=== PATIENT | male | born 1955 | race Caucasian/White ===

== ENCOUNTER 2020-07-28 09:28 | Outpatient (REF) | payer MEDICARE, SELFPAY ==
[2020-07-28 22:02] LABS: ALT 22 U/L (16-63); AST 15 U/L (15-37); Albumin 4.1 g/dL (3.4-5.0); Alkaline Phosphatase 96 U/L (46-116); Anion Gap 9.4 mmol/L (3-11); BUN 25 mg/dL (7-18); Bilirubin, Total 0.9 mg/dL (0.2-1.0); CO2 28.6 mmol/L (21.0-32.0); CREATININE 1.46 mg/dL (0.70-1.30); Calcium 9.6 mg/dL (8.5-10.1); Calculated LDL 111 mg/dL (<100); Chloride 103 mmol/L (98-107); Cholesterol 192 mg/dL (<200); Estimated GFR 48.31 (mL/min/1.73m2); Glucose 141 mg/dL (74-106); HDL Cholesterol 48 mg/dL (40-60); Sodium 141 mmol/L (136-145); Total Protein 7.6 g/dL (6.4-8.2); Triglyceride 168 mg/dL (<150)
[2020-07-28 22:28] LABS: COMMENT (LAB VIEW ONLY) 74.82 mg/dL
[2020-07-28 22:33] LABS: Microalb ug/mg Crea 223.7 ug/mg Cr
== END 2020-07-28 09:48 ==
LOC: NCHCN 09:28
PROVIDERS: PCP Nurse Practitioner Family; Visit Provider Nurse Practitioner Family
DX: I10 Essential (primary) hypertension (principal); E11.9 Type 2 diabetes mellitus without complications; E78.5 Hyperlipidemia, unspecified
CPT/HCPCS: 80053; 80061; 82043; 82570

== ENCOUNTER 2022-10-17 15:09 | Outpatient (REF) | payer MEDICARE, SELFPAY ==
[2022-10-17 16:13] LABS: Abs Immature Grans 0.03 10^3/uL (0.0-0.06); Absolute Basophil Count 0.05 10^3/uL (0.0-0.2); Absolute Eosinophil Count 0.13 10^3/uL (0.0-0.7); Absolute Lymphocyte Count 1.38 10^3/uL (1.2-3.4); Absolute Monocyte Count 0.62 10^3/uL (0.1-0.8); Absolute Neutrophil Count 5.17 10^3/uL (1.2-6.7); Basophils % 0.7; Eosinophils % 1.8; HCT 39.2 % (40.0-50.0); HGB 12.6 g/dL (13.5-17.5); Immature Grans % 0.4; Lymphocytes % 18.7; MCH 28.6 pg (27.0-33.0); MCHC 32.1 % (32.0-36.0); MCV 89 fL (80-95); MPV 9.8 fL (8.0-11.0); Monocytes % 8.4; Platelet Count 392 10^3/uL (130-400); RBC 4.41 10^6/uL (4.36-5.78); RDW 13.4 % (11.8-14.1); RDW-SD 44.2 fL; WBC 7.38 10^3/uL (4.4-10.8)
[2022-10-17 16:30] LABS: BUN 24 mg/dL (7-18); C-Reactive Protein 1.38 mg/dL (0.0-0.3); CREATININE 1.6 mg/dL (0.70-1.30); Calcium 8.9 mg/dL (8.5-10.1); Chloride 97 mmol/L (98-107); Estimated GFR 46.64 (mL/min/1.73m2); Glucose 460 mg/dL (74-106); Potassium 4.3 mmol/L (3.5-5.1); Sodium 132 mmol/L (136-145)
== END 2022-10-17 15:10 | disposition home or self-care (01) ==
LOC: LBN 15:09
PROVIDERS: PCP Nurse Practitioner Family; Visit Provider Podiatrist
DX: M86.171 Other acute osteomyelitis, right ankle and foot (principal); E11.65 Type 2 diabetes mellitus with hyperglycemia
CPT/HCPCS: 80048; 85025; 86140

== ENCOUNTER 2023-01-16 20:34 | Outpatient (REF) | payer MEDICARE, SELFPAY ==
[2023-01-16 21:33] LABS: Abs Immature Grans 0.04 10^3/uL (0.0-0.06); Absolute Basophil Count 0.06 10^3/uL (0.0-0.2); Absolute Eosinophil Count 0.18 10^3/uL (0.0-0.7); Absolute Lymphocyte Count 1.47 10^3/uL (1.2-3.4); Absolute Monocyte Count 0.73 10^3/uL (0.1-0.8); Absolute Neutrophil Count 7.64 10^3/uL (1.2-6.7); Basophils % 0.6; Eosinophils % 1.8; HCT 31.1 % (40.0-50.0); HGB 9.9 g/dL (13.5-17.5); Immature Grans % 0.4; Lymphocytes % 14.5; MCH 28.8 pg (27.0-33.0); MCHC 31.8 % (32.0-36.0); MCV 90 fL (80-95); MPV 9.2 fL (8.0-11.0); Monocytes % 7.2; Neutrophils % 75.5; Platelet Count 369 10^3/uL (130-400); RBC 3.44 10^6/uL (4.36-5.78); RDW 16.9 % (11.8-14.1); RDW-SD 51.1 fL; WBC 10.12 10^3/uL (4.4-10.8)
[2023-01-16 21:47] LABS: ALT 21 U/L (16-63); AST 21 U/L (15-37); Albumin 2.4 g/dL (3.4-5.0); Alkaline Phosphatase 320 U/L (46-116); Anion Gap 7.2 mmol/L (3-11); BUN 11 mg/dL (7-18); Bilirubin, Total 0.3 mg/dL (0.2-1.0); C-Reactive Protein 2.52 mg/dL (0.0-0.3); CO2 28.8 mmol/L (21.0-32.0); Calcium 8.7 mg/dL (8.5-10.1); Chloride 104 mmol/L (98-107); Estimated GFR 81.47 (mL/min/1.73m2); Glucose 109 mg/dL (74-106); Potassium 4.1 mmol/L (3.5-5.1); Sodium 140 mmol/L (136-145); Total Protein 5.7 g/dL (6.4-8.2)
== END 2023-01-16 20:35 | disposition home or self-care (01) ==
LOC: LBN 20:34
PROVIDERS: PCP Nurse Practitioner Family; Visit Provider Nurse Practitioner
DX: M86.171 Other acute osteomyelitis, right ankle and foot (principal); L03.115 Cellulitis of right lower limb; Z79.2 Long term (current) use of antibiotics; E11.9 Type 2 diabetes mellitus without complications
CPT/HCPCS: 80053; 85025; 86140

== ENCOUNTER 2023-01-23 22:17 | Outpatient (REF) | payer MEDICARE, SELFPAY ==
[2023-01-23 21:18] LABS: Abs Immature Grans 0.02 10^3/uL (0.0-0.06); Absolute Basophil Count 0.07 10^3/uL (0.0-0.2); Absolute Eosinophil Count 0.17 10^3/uL (0.0-0.7); Absolute Monocyte Count 0.78 10^3/uL (0.1-0.8); Basophils % 0.6; Eosinophils % 1.6; HCT 33.6 % (40.0-50.0); HGB 11.2 g/dL (13.5-17.5); Immature Grans % 0.2; Lymphocytes % 8.2; MCH 29.3 pg (27.0-33.0); MCHC 33.3 % (32.0-36.0); MCV 88 fL (80-95); MPV 9.4 fL (8.0-11.0); Monocytes % 7.1; Neutrophils % 82.3; Platelet Count 473 10^3/uL (130-400); RBC 3.82 10^6/uL (4.36-5.78); RDW 16.9 % (11.8-14.1); RDW-SD 54.7 fL; WBC 10.93 10^3/uL (4.4-10.8)
[2023-01-23 21:34] LABS: ALT 17 U/L (16-63); AST 23 U/L (15-37); Albumin 2.4 g/dL (3.4-5.0); Alkaline Phosphatase 224 U/L (46-116); Anion Gap 6.8 mmol/L (3-11); BUN 18 mg/dL (7-18); Bilirubin, Total 0.4 mg/dL (0.2-1.0); C-Reactive Protein 4.06 mg/dL (0.0-0.3); CO2 30.2 mmol/L (21.0-32.0); CREATININE 1.1 mg/dL (0.70-1.30); Calcium 8.5 mg/dL (8.5-10.1); Chloride 102 mmol/L (98-107); Estimated GFR 72.67 (mL/min/1.73m2); Glucose 95 mg/dL (74-106); Potassium 3.5 mmol/L (3.5-5.1); Sodium 139 mmol/L (136-145); Total Protein 5.9 g/dL (6.4-8.2)
== END 2023-01-23 22:18 | disposition home or self-care (01) ==
LOC: LBN 22:17
PROVIDERS: PCP Nurse Practitioner Family; Visit Provider Student in an Organized Health Care Education/Training Program
DX: B95.7 Other staphylococcus as the cause of diseases classified elsewhere (principal); A49.8 Other bacterial infections of unspecified site; M86.9 Osteomyelitis, unspecified
CPT/HCPCS: 80053; 85025; 86140

== ENCOUNTER 2023-01-30 14:42 | Outpatient (REF) | payer MEDICARE, SELFPAY ==
[2023-01-30 14:52] LABS: Abs Immature Grans 0.19 10^3/uL (0.0-0.06); Absolute Basophil Count 0.05 10^3/uL (0.0-0.2); Absolute Eosinophil Count 0.68 10^3/uL (0.0-0.7); Absolute Lymphocyte Count 0.56 10^3/uL (1.2-3.4); Absolute Monocyte Count 0.83 10^3/uL (0.1-0.8); Absolute Neutrophil Count 11.06 10^3/uL (1.2-6.7); Basophils % 0.4; Eosinophils % 5.1; HGB 11.2 g/dL (13.5-17.5); Immature Grans % 1.4; Lymphocytes % 4.2; MCH 28.3 pg (27.0-33.0); MCHC 32.9 % (32.0-36.0); MCV 86 fL (80-95); MPV 9.2 fL (8.0-11.0); Monocytes % 6.2; Neutrophils % 82.7; Platelet Count 570 10^3/uL (130-400); RBC 3.96 10^6/uL (4.36-5.78); RDW 15.6 % (11.8-14.1); RDW-SD 49.1 fL; WBC 13.37 10^3/uL (4.4-10.8)
[2023-01-30 15:15] LABS: ALT 35 U/L (16-63); AST 31 U/L (15-37); Albumin 1.9 g/dL (3.4-5.0); Alkaline Phosphatase 308 U/L (46-116); Anion Gap 9.2 mmol/L (3-11); BUN 10 mg/dL (7-18); Bilirubin, Total 0.5 mg/dL (0.2-1.0); C-Reactive Protein 20.96 mg/dL (0.0-0.3); CO2 28.8 mmol/L (21.0-32.0); CREATININE 0.8 mg/dL (0.70-1.30); Calcium 8.7 mg/dL (8.5-10.1); Chloride 100 mmol/L (98-107); Glucose 96 mg/dL (74-106); Potassium 3.6 mmol/L (3.5-5.1); Sodium 138 mmol/L (136-145); Total Protein 5.6 g/dL (6.4-8.2)
[2023-01-31 13:36] LABS: Creatine Kinase 102 U/L (39-308)
== END 2023-01-30 14:43 | disposition home or self-care (01) ==
LOC: LBN 14:42
PROVIDERS: Student in an Organized Health Care Education/Training Program; PCP Nurse Practitioner Family; Visit Provider Surgery Vascular Surgery
DX: B95.62 Methicillin resistant Staphylococcus aureus infection as the cause of diseases classified elsewhere (principal); B95.1 Streptococcus, group B, as the cause of diseases classified elsewhere; M86.171 Other acute osteomyelitis, right ankle and foot; B95.2 Enterococcus as the cause of diseases classified elsewhere
CPT/HCPCS: 80053; 82550; 85025; 86140

== ENCOUNTER 2023-02-06 14:47 | Outpatient (REF) | payer MEDICARE, SELFPAY ==
[2023-02-06 15:21] LABS: Abs Immature Grans 0.17 10^3/uL (0.0-0.06); Absolute Basophil Count 0.07 10^3/uL (0.0-0.2); Absolute Eosinophil Count 0.46 10^3/uL (0.0-0.7); Absolute Lymphocyte Count 0.98 10^3/uL (1.2-3.4); Absolute Monocyte Count 0.72 10^3/uL (0.1-0.8); Basophils % 0.4; Eosinophils % 2.6; HCT 36.1 % (40.0-50.0); HGB 11.8 g/dL (13.5-17.5); Lymphocytes % 5.6; MCH 28.2 pg (27.0-33.0); MCHC 32.7 % (32.0-36.0); MCV 86 fL (80-95); MPV 8.8 fL (8.0-11.0); Monocytes % 4.1; Neutrophils % 86.3; Platelet Count 615 10^3/uL (130-400); RBC 4.19 10^6/uL (4.36-5.78); RDW 15.1 % (11.8-14.1); RDW-SD 47.6 fL; WBC 17.57 10^3/uL (4.4-10.8)
[2023-02-06 15:23] LABS: Absolute Neutrophil Count 15.16 10^3/uL (1.2-6.7)
[2023-02-06 16:15] LABS: ALT 34 U/L (16-63); AST 24 U/L (15-37); Albumin 1.6 g/dL (3.4-5.0); Alkaline Phosphatase 284 U/L (46-116); Anion Gap 9.3 mmol/L (3-11); BUN 15 mg/dL (7-18); Bilirubin, Total 0.3 mg/dL (0.2-1.0); C-Reactive Protein 15.14 mg/dL (0.0-0.3); CO2 26.7 mmol/L (21.0-32.0); CREATININE 0.9 mg/dL (0.70-1.30); Calcium 8.5 mg/dL (8.5-10.1); Chloride 100 mmol/L (98-107); Creatine Kinase 62 U/L (39-308); Estimated GFR 92.45 (mL/min/1.73m2); Glucose 187 mg/dL (74-106); Potassium 3.9 mmol/L (3.5-5.1); Sodium 136 mmol/L (136-145); Total Protein 5.6 g/dL (6.4-8.2)
== END 2023-02-06 14:48 | disposition home or self-care (01) ==
LOC: LBN 14:47
PROVIDERS: PCP Nurse Practitioner Family; Visit Provider Student in an Organized Health Care Education/Training Program
DX: M86.171 Other acute osteomyelitis, right ankle and foot (principal); B95.2 Enterococcus as the cause of diseases classified elsewhere; B95.7 Other staphylococcus as the cause of diseases classified elsewhere
CPT/HCPCS: 80053; 82550; 85025; 86140

== ENCOUNTER 2023-02-13 20:42 | Outpatient (REF) | payer MEDICARE, SELFPAY ==
[2023-02-13 21:41] LABS: Absolute Basophil Count 0.12 10^3/uL (0.0-0.2); Absolute Eosinophil Count 1.12 10^3/uL (0.0-0.7); Absolute Lymphocyte Count 1.05 10^3/uL (1.2-3.4); Absolute Monocyte Count 0.91 10^3/uL (0.1-0.8); Absolute Neutrophil Count 20.06 10^3/uL (1.2-6.7); Basophils % 0.5; Eosinophils % 4.8; HCT 35.9 % (40.0-50.0); HGB 11.7 g/dL (13.5-17.5); Immature Grans % 0.4; Lymphocytes % 4.5; MCH 28.1 pg (27.0-33.0); MCHC 32.6 % (32.0-36.0); MCV 86 fL (80-95); Monocytes % 3.9; Neutrophils % 85.9; RBC 4.17 10^6/uL (4.36-5.78); RDW 14.9 % (11.8-14.1); RDW-SD 46.5 fL; WBC 23.35 10^3/uL (4.4-10.8)
[2023-02-13 21:48] LABS: ALT 19 U/L (16-63); AST 22 U/L (15-37); Albumin 1.3 g/dL (3.4-5.0); Alkaline Phosphatase 201 U/L (46-116); Anion Gap 6.8 mmol/L (3-11); BUN 14 mg/dL (7-18); Bilirubin, Total 0.3 mg/dL (0.2-1.0); C-Reactive Protein 20.84 mg/dL (0.0-0.3); CO2 33.2 mmol/L (21.0-32.0); CREATININE 0.8 mg/dL (0.70-1.30); Calcium 8.2 mg/dL (8.5-10.1); Chloride 99 mmol/L (98-107); Glucose 163 mg/dL (74-106); Potassium 3.6 mmol/L (3.5-5.1); Sodium 139 mmol/L (136-145); Total Protein 5.5 g/dL (6.4-8.2)
[2023-02-13 21:59] LABS: Diff Comment Agrees w/ Instrument; Platelet Count 682 10^3/uL (130-400); RBC Morphology Normal
[2023-02-14 13:38] LABS: Creatine Kinase 48 U/L (39-308)
== END 2023-02-13 20:43 | disposition home or self-care (01) ==
LOC: LBN 20:42
PROVIDERS: PCP Nurse Practitioner Family; Visit Provider Student in an Organized Health Care Education/Training Program
DX: M86.071 Acute hematogenous osteomyelitis, right ankle and foot (principal); B95.2 Enterococcus as the cause of diseases classified elsewhere; B95.7 Other staphylococcus as the cause of diseases classified elsewhere
CPT/HCPCS: 80053; 82550; 85025; 86140

== ENCOUNTER 2023-09-08 14:00 | Outpatient (REF) | payer MEDICARE, SELFPAY ==
[2023-09-08 14:12] LABS: HCT 35.2 % (40.0-50.0); HGB 11.1 g/dL (13.5-17.5); MCH 28.9 pg (27.0-33.0); MCHC 31.5 % (32.0-36.0); MCV 92 fL (80-95); MPV 9.4 fL (8.0-11.0); Platelet Count 559 10^3/uL (130-400); RBC 3.84 10^6/uL (4.36-5.78); RDW 14.7 % (11.8-14.1); RDW-SD 49.5 fL; WBC 12.42 10^3/uL (4.4-10.8)
[2023-09-08 14:27] LABS: ALT 12 U/L (16-63); AST 20 U/L (15-37); Albumin 2.3 g/dL (3.4-5.0); Alkaline Phosphatase 273 U/L (46-116); Anion Gap 9.9 mmol/L (3-11); BUN 19 mg/dL (7-18); Bilirubin, Total 0.6 mg/dL (0.2-1.0); CO2 22.1 mmol/L (21.0-32.0); CREATININE 1.8 mg/dL (0.70-1.30); Calcium 9.4 mg/dL (8.5-10.1); Chloride 102 mmol/L (98-107); Estimated GFR 40.24 (mL/min/1.73m2); Glucose 253 mg/dL (74-106); Potassium 4.9 mmol/L (3.5-5.1); Sodium 134 mmol/L (136-145); Total Protein 7.2 g/dL (6.4-8.2)
== END 2023-09-08 14:01 | disposition home or self-care (01) ==
LOC: LBN 14:00
PROVIDERS: PCP Nurse Practitioner Family; Visit Provider Nurse Practitioner Adult Health
DX: M86.271 Subacute osteomyelitis, right ankle and foot (principal)
CPT/HCPCS: 80053; 85027

== ENCOUNTER 2023-09-10 13:45 | Inpatient (IN) | payer MEDICARE, SELFPAY ==
[2023-09-10] VITALS (21 sets, daily range): BP systolic 129–159; BP diastolic 67–87; PULSE 95–109; RESP 10–23; TEMP 36.4–36.6; O2SAT 81–99
--- NOTE | 2023-09-10 14:11 | ED.GENADUL_ITS ---
Discharge Plan Disposition Patient Disposition: Admit to [facility] Discharge Details Clinical Impression: Urinary tract infection, Acute renal insufficiency, Altered mental status, Acute hyperkalemia Primary Care Provider: Amie Farnsworth ED Provider: Caroline Waters Home Meds and New Rx's Prescriptions: No Action aspirin 81 mg capsule 81 mg PO DAILY atorvastatin 40 mg tablet 40 mg PO DAILY clopidogrel 75 mg tablet 75 mg PO DAILY cyclobenzaprine 5 mg tablet 5 mg PO TID PRN bisacodyl [Dulcolax (bisacodyl)] 10 mg suppository 10 mg SD DAILY PRN Fleet Enema 19-7 gram/118 mL enema 118 ml SD DAILY PRN gabapentin 600 mg tablet 600 mg PO BID glucagon 1 mg kit IM PRN insulin glargine 100 unit/mL solution 14 unit subcut QPM lisinopril 40 mg tablet 40 mg PO DAILY magnesium hydroxide 400 mg/5 mL suspension 400 mg PO QID polyethylene glycol 3350 [HealthyLax] 17 gram powder in packet 17 g PO ONCE naloxone 4 mg/actuation spray,non-aerosol 4 mg intranasal Q2-3M PRN Rx Instructions: spray 1 dose into ONE nostril; alternate nostrils w each dose until help arrives Oxaydo 5 mg tablet, oral only 5 mg PO Q8H oxycodone [OxyContin] 20 mg tablet,oral only,ext.rel.12 hr 20 mg PO Q12H pantoprazole 40 mg tablet,delayed release (DR/EC) 40 mg PO DAILY potassium chloride [Klor-Con M20] 20 mEq tablet,ER particles/crystals 40 meq PO DAILY vancomycin [Firvanq] 50 mg/mL recon soln 125 mg PO DIRECTED Rx Instructions: take 125 mg 4 times per day for 10 days; 2 times per day for 7 days; once daily for 7 days; once every 2-3 days for 2-8 weeks Medical Decision Making Emergent evaluation of altered mental status. Initial differential includes infectious etiology. Urinary retention, renal failure, sepsis. Is alert, but slightly confused. His recent surgical wound appears slightly erythematous without any overt signs of infection. Patient did not have surgery here and has never been seen at this facility. History limited to records available from the rehab facility. 1430: Lab work reviewed. Elevated white blood cell count noted. There is shift. There is mild anemia. No priors for comparison. 1600: CMP concerning for acute renal insufficiency. There is also mild hyperkalemia. EKG reviewed, there is minimal peaked T waves without other changes. Per nursing report, he was straight cathed for urinalysis without significant urinary volume. Urinalysis is infected. Culture has been sent. Blood cultures have been added. Rocephin has been given for urinary tract infection. Treatment for hyperkalemia has been given. Patient will continue telemetry monitoring. Will admit to the hospital for further management of renal failure and urinary tract infection. Discussed with hospitalist who is excepted this patient for further management. Medical Records Medical records reviewed: Yes I reviewed the patient's medical records. Lab Data Lab results reviewed: Yes I reviewed the patient's lab results. ECG Data Attestation: I personally reviewed and interpreted this ECG (s) as follows: Prior ECG tracings: not available for review HPI General Date/Time Provider Initiated Documentation: 09/10/23 13:51 . Limitations to Documentation: altered mental status . Information obtained by: EMS and old records reviewed . HPI Narrative: 67-year-old gentleman with past medical history of diabetes, urinary retention, recent right lower extremity amputation secondary to osteomyelitis presents from rehab facility for evaluation of altered mental status. Rehab facility did not have concerns regarding the patient, but patient's family felt that he was not his self today. They report that he has been having some difficulty urinating. There patient reports that he is here because they were out of chocolate milk. No additional information is available at this time Related Data Home Medications Medication Instructions Recorded Confirmed aspirin 81 mg capsule 81 mg PO DAILY 09/10/23 09/10/23 atorvastatin 40 mg tablet 40 mg PO DAILY 09/10/23 09/10/23 bisacodyl 10 mg rectal suppository 10 mg SD DAILY PRN 09/10/23 09/10/23 (Dulcolax (bisacodyl)) clopidogrel 75 mg tablet 75 mg PO DAILY 09/10/23 09/10/23 cyclobenzaprine 5 mg tablet 5 mg PO TID PRN 09/10/23 09/10/23 gabapentin 600 mg tablet 600 mg PO BID 09/10/23 09/10/23 glucagon 1 mg injection kit mg IM PRN 09/10/23 insulin glargine 100 unit/mL 14 unit subcut QPM 09/10/23 09/10/23 subcutaneous solution lisinopril 40 mg tablet 40 mg PO DAILY 09/10/23 09/10/23 magnesium hydroxide 400 mg/5 mL 400 mg PO QID 09/10/23 09/10/23 oral suspension naloxone 4 mg/actuation nasal spray 4 mg intranasal Q2-3M PRN 09/10/23 09/10/23 oxycodone 20 mg tablet,crush 20 mg PO Q12H 09/10/23 09/10/23 resistant,extended release 12 hr (OxyContin) oxycodone 5 mg tablet,oral ONLY 5 mg PO Q8H 09/10/23 09/10/23 (not feeding tubes) (Oxaydo) pantoprazole 40 mg tablet,delayed 40 mg PO DAILY 09/10/23 09/10/23 release polyethylene glycol 3350 17 gram 17 g PO ONCE 09/10/23 09/10/23 oral powder packet (HealthyLax) potassium chloride 20 mEq 40 meq PO DAILY 09/10/23 09/10/23 tablet,extended release(part/cryst) (Klor-Con M) sodium phosphates 19 gram-7 118 ml SD DAILY PRN 09/10/23 09/10/23 gram/118 mL enema (Fleet Enema) vancomycin 50 mg/mL oral solution 125 mg PO DIRECTED 09/10/23 09/10/23 (Firvanq) Allergies Allergy/AdvReac Type Severity Reaction Status Date / Time NKDA Allergy Uncoded 09/10/23 14:11 General Stated Complaint: GenMedical FOREIGN: 3 PFSH All Active Problems (Updated 09/10/23 @ 16:22 by Caroline Waters MD) Acute hyperkalemia (Acute) Altered mental status (Acute) Acute renal insufficiency (Acute) Urinary tract infection (Acute) Social History Smoking/Tobacco Use Status: Never Smoking risk assessment performed?: Yes Alcohol Intake: former Drug use: Never Substance use type: does not use Housing: residential Do you feel safe at home: Yes Do you feel safe in your relationship?: Yes Exam Narrative Exam Narrative: Review of Systems: All systems reviewed & are unremarkable except as noted in HPI and below Exam: Const: Well-nourished, Well-developed, appearing stated age HEENT: NACT / Eyes: PERRL, no conjunctival injection, and symmetrical lids / EARS Atraumatic external nose and ears / MOUTH Moist MM / NECK: Symmetric, trachea midline, No thyromegaly / THROAT oropharynx clear CVS: RRR, No murmurs or gallops. Peripheral pulses 2+ and equal in all extremities. Brisk capillary refill in all extremities. RESP: Unlabored respiratory effort, Clear to auscultation bilaterally. No wheezes rales or rhonchi GI: Soft, Nontender/Nondistended, No hepatosplenomegaly. No guarding or rebound. MSK: right lower extremity with BKA, jena and sutures intact, mild erythema without significant tenderness fluctuance or drainage Skin: Warm, Dry. No rashes or lesions. 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 Sensation grossly intact, no focal neurologic deficits. Psych: pleasantly confused, follows commands and answers questions Course Vital Signs Vital signs: Vital Signs Temperature 36.5 C 09/10/23 13:51 Pulse 96 H 09/10/23 13:51 Blood Pressure 141/71 H 09/10/23 13:51 Pulse Oximetry 97 09/10/23 13:51 Temperature 36.5 C 09/10/23 13:51 Temperature Source Oral 09/10/23 13:51 Pulse 96 H 09/10/23 13:51 Respiratory Rate 15 09/10/23 14:03 Respiratory Effort Normal 09/10/23 14:03 Respiratory Depth Normal 09/10/23 14:03 Respiratory Pattern Normal 09/10/23 14:03 Blood Pressure 141/71 H 09/10/23 13:51 Pulse Oximetry 97 09/10/23 13:51 Oxygen Delivery Method Room Air 09/10/23 13:51 Oxygen Flow Rate 0 09/10/23 13:51 Critical Care Time Critical Care Time Critical Care Time: Yes Total Critical Care Time: 32 Attestation: CRITICAL CARE Upon my evaluation, this patient had a high probability of imminent or life- threatening deterioration due to acute renal failure, electrolyte derangement which required my direct attention, intervention, and personal management. I have personally provided 32 minutes of critical care time exclusive of time spent on separately billable procedures. Time includes review of laboratory data, radiology results, discussion with consultants, and monitoring for potential decompensation. Interventions were performed as documented above
[2023-09-10 14:22] LABS: Abs Immature Grans 0.05 10^3/uL (0.0-0.06); Absolute Lymphocyte Count 1.24 10^3/uL (1.2-3.4); Absolute Monocyte Count 0.68 10^3/uL (0.1-0.8); Absolute Neutrophil Count 10.92 10^3/uL (1.2-6.7); Basophils % 0.5; Eosinophils % 1.4; HCT 35.2 % (40.0-50.0); HGB 10.9 g/dL (13.5-17.5); Immature Grans % 0.4; Lymphocytes % 9.4; MCH 28.8 pg (27.0-33.0); MCV 93 fL (80-95); MPV 9.2 fL (8.0-11.0); Monocytes % 5.2; Neutrophils % 83.1; Platelet Count 564 10^3/uL (130-400); RBC 3.78 10^6/uL (4.36-5.78); RDW 14.6 % (11.8-14.1); RDW-SD 50.4 fL; WBC 13.14 10^3/uL (4.4-10.8)
[2023-09-10 14:24] LABS: Absolute Basophil Count 0.07 10^3/uL (0.0-0.2); Absolute Eosinophil Count 0.18 10^3/uL (0.0-0.7)
--- NOTE | 2023-09-10 14:45 | RT.EKG_ITS ---
APPROVED REPORT Exam: Resting ECG Reason for Exam: hyperkalemia Patient Location: E HR:97 bpm ECG Measurements Heart Rate 97 AXIS FL 222 P 73 QRSd 128 QRS -84 QT 385 T 47 QTc 489 Conclusion Sinus Rhythm Normal rate prolonged FL non specific ST segments no prior for comparison
[2023-09-10 14:46] LABS: ALT 10 U/L (16-63); AST 19 U/L (15-37); Albumin 2.3 g/dL (3.4-5.0); Alkaline Phosphatase 290 U/L (46-116); Anion Gap 8.3 mmol/L (3-11); BUN 24 mg/dL (7-18); Bilirubin, Total 0.6 mg/dL (0.2-1.0); CO2 22.7 mmol/L (21.0-32.0); Calcium 9.4 mg/dL (8.5-10.1); Chloride 107 mmol/L (98-107); Estimated GFR 35.46 (mL/min/1.73m2); Glucose 176 mg/dL (74-106); Sodium 138 mmol/L (136-145); Total Protein 7.4 g/dL (6.4-8.2)
[2023-09-10 14:49] LABS: Potassium 6.6 mmol/L (3.5-5.1)
[2023-09-10 14:50] LABS: Bilirubin Negative (Negative); Blood Moderate (Negative); Clarity Cloudy (Clear); Glucose Negative (Negative); Ketones Negative (Negative); Leukocyte Esterase Moderate (Negative); Nitrite Negative (Negative); Specific Gravity 1.025 (1.005-1.025); Urobilinogen 0.2 mg/dL (Up to 0.2); pH 5.5 (5-8)
[2023-09-10 15:02] LABS: Bacteria Negative HPF (Negative); C & S Indicated? Yes; Crystals Negative HPF (Negative); Epithelial Cells Rare HPF (Negative); Mucus Trace (Negative); Other Cells Few Yeast (Negative); WBC >50 HPF (0-5)
[2023-09-10] MEDS: Normal Saline 1,000 ML 1000 ML IV (15:47)
[2023-09-10] MEDS: Insulin REGULAR-Human 100 UNITS/ML UNIT IV (15:48)
[2023-09-10] MEDS: Dextrose 50%-Water 25 GM/50 ML SYR IVP (15:50)
[2023-09-10] MEDS: Furosemide 40 MG/4 ML VIAL IVP (15:52)
[2023-09-10] MEDS: CALCIUM GLUCONATE in NaCl 1 GM/50 ML BAG IVPB (15:54)
[2023-09-10 16:38] LABS: Glucose 268 mg/dL (74-106)
[2023-09-10] MEDS: cefTRIAXone 2 GM/50 ML BAG IVPB (16:43)
[2023-09-10 17:35] LABS: Source Nasopharynx
[2023-09-10 18:07] LABS: COVID-19 PCR Negative (Negative)
--- NOTE | 2023-09-10 18:19 | W.PM.HP.N ---
Date of service: 09/10/23 Time of Service: 18:23 Assessment and Plan Assessment and plan (1) Severe sepsis: Status: Acute Assessment and plan: -Patient meets severe sepsis criteria with HR >90, WBC 13, UTI as source of infection, acute renal insufficiency with hyperkalemia and elevated Cr, as well as acute metabolic and infectious encephalopathy -given 1L NS in ED -started on rocephen in the ED, will continue -f/u urine and blood cultures (2) Urinary tract infection: Status: Acute Assessment and plan: -as noted above Qualifiers: Hematuria presence: with hematuria Urinary tract infection type: site unspecified Qualified Code(s): N39.0 - Urinary tract infection, site not specified; R31.9 - Hematuria, unspecified (3) Acute hyperkalemia: Status: Acute Assessment and plan: -K 6.6 in ED -likely secondary to renal insufficiency due to severe sepsis UTI as noted above -s/p IV lasix, IV glucose and insulin in ED -repeat K down to 5.9 -f/u AMP BMP (4) Acute renal insufficiency: Status: Acute Assessment and plan: -as noted above (5) Acute metabolic encephalopathy: Status: Acute Assessment and plan: -secondary to renal insufficiency and severe sepsis as noted above (6) Insulin dependent type 2 diabetes mellitus: Status: Acute Assessment and plan: -continue home insulin regimen including lantus 14U QHS (7) CAD (coronary artery disease): Status: Chronic Assessment and plan: -continue home asa 81mg daily, lipitor 40mg daily, plavix 75mg daily, lisinopril 40mg daily Qualifiers: Associated angina: unspecified whether angina present Coronary Disease-Associated Artery/Lesion type: unspecified vessel or lesion type [place] vs. transplanted heart: [place] heart Qualified Code(s): I25.10 - Atherosclerotic heart disease of [place] coronary artery without angina pectoris History of Present Illness History of Present Illness Chief Complaint: AMS Narrative: 67-year-old gentleman with a past medical history of IDDM, urinary retention, recent right lower extremity amputation secondary to osteomyelitis, coronary artery disease presenting the emergency department for evaluation of altered mental status. According to emergency room physician rehab facility where the patient was stating did not have any concerns but patient's family stated they felt that the patient had been off today and that he was not himself when he was also having some difficulty urinating. Patient was unable to provide any additional information as he stated he thought he was initially brought to the emergency department because there was no chocolate milk. While in the emergency department the patient was noted as being tachycardic with a heart rate in the high 90s, normal blood pressure, respiratory rate and oxygen saturation, CBC showed a white count of 13 and UA was highly suggestive of urinary tract infection with moderate leukocyte esterase and greater than 50 WBCs. Additionally, patient's CMP showed a potassium of 6.6 (4.92 days prior) and a BUN of 24 and a creatinine of 2 (BUN of 19 and creatinine of 1.82 days prior). Emergency room physician initiated Rocephin for the urinary tract infection, as well as administering 1 L normal saline, IV glucose, IV Lasix and insulin for the hyperkalemia. At which time emergency room physician paged hospitalist for admission for patient with severe sepsis secondary to urinary tract infection with acute renal insufficiency, hyperkalemia, and acute metabolic and infectious encephalopathy. Review of Systems All systems reviewed & are unremarkable except as noted in HPI and below PFSH All Active Problems (Updated 09/10/23 @ 19:35 by Lucio Dickson MD) Severe sepsis (Acute) Sepsis (Acute) Urinary tract infection (Acute) Acute hyperkalemia (Acute) Acute metabolic encephalopathy (Acute) Acute renal insufficiency (Acute) CAD (coronary artery disease) (Chronic) Insulin dependent type 2 diabetes mellitus (Acute) Altered mental status (Acute) Social History Smoking/Tobacco Use Status: Never Smoking risk assessment performed?: Yes Alcohol Intake: former Drug use: Never Substance use type: does not use Housing: assisted living facility Do you feel safe at home: Yes Do you feel safe in your relationship?: Yes Meds Allergies and Home Medications Allergies Allergy/AdvReac Type Severity Reaction Status Date / Time NKDA Allergy Uncoded 09/10/23 14:11 Home Medications Medication Instructions Recorded Confirmed Type aspirin 81 mg capsule 81 mg PO DAILY 09/10/23 09/10/23 History atorvastatin 40 mg tablet 40 mg PO DAILY 09/10/23 09/10/23 History bisacodyl 10 mg rectal suppository 10 mg NV DAILY PRN 09/10/23 09/10/23 History (Dulcolax (bisacodyl)) clopidogrel 75 mg tablet 75 mg PO DAILY 09/10/23 09/10/23 History cyclobenzaprine 5 mg tablet 5 mg PO TID PRN 09/10/23 09/10/23 History gabapentin 600 mg tablet 600 mg PO BID 09/10/23 09/10/23 History glucagon 1 mg injection kit mg IM PRN 09/10/23 History insulin glargine 100 unit/mL 14 unit subcut QPM 09/10/23 09/10/23 History subcutaneous solution lisinopril 40 mg tablet 40 mg PO DAILY 09/10/23 09/10/23 History magnesium hydroxide 400 mg/5 mL 400 mg PO QID 09/10/23 09/10/23 History oral suspension naloxone 4 mg/actuation nasal spray 4 mg intranasal Q2-3M PRN 09/10/23 09/10/23 History oxycodone 20 mg tablet,crush 20 mg PO Q12H 09/10/23 09/10/23 History resistant,extended release 12 hr (OxyContin) oxycodone 5 mg tablet,oral ONLY 5 mg PO Q8H 09/10/23 09/10/23 History (not feeding tubes) (Oxaydo) pantoprazole 40 mg tablet,delayed 40 mg PO DAILY 09/10/23 09/10/23 History release polyethylene glycol 3350 17 gram 17 g PO ONCE 09/10/23 09/10/23 History oral powder packet (HealthyLax) potassium chloride 20 mEq 40 meq PO DAILY 09/10/23 09/10/23 History tablet,extended release(part/cryst) (Klor-Con M) sodium phosphates 19 gram-7 118 ml NV DAILY PRN 09/10/23 09/10/23 History gram/118 mL enema (Fleet Enema) vancomycin 50 mg/mL oral solution 125 mg PO DIRECTED 09/10/23 09/10/23 History (Firvanq) Exam Narrative Exam Narrative: Well appearing older gentleman laying in bed in no acute distress, awake, alert, oriented to person only, pleasantly confused and following commands, heart RRR, lungs CTAB, abdomen soft, non-tender, non-distended Results Labs 09/10/23 14:18 09/10/23 19:11 Labs: Laboratory Results - last 24 hr 09/10/23 09/10/23 09/10/23 14:18 14:40 16:11 WBC 13.14 H RBC 3.78 L Hgb 10.9 L Hct 35.2 L MCV 93 MCH 28.8 MCHC 31.0 L RDW 14.6 H Plt Count 564 H MPV 9.2 Immature Gran % 0.4 Neutrophils % 83.1 Lymphocytes % 9.4 Monocytes % 5.2 Eosinophils % 1.4 Basophils % 0.5 Nucleated RBC % 0.0 Absolute Neutrophils 10.92 H Absolute Lymphocytes 1.24 Absolute Monocytes 0.68 Absolute Eosinophils 0.18 Absolute Basophils 0.07 Sodium 138 Potassium 6.6 H* D Chloride 107 Carbon Dioxide 22.7 Anion Gap 8.3 BUN 24 H Creatinine 2.0 H Est GFR (CKD-EPI 2020) 35.46 Glucose 176 H 268 H Calcium 9.4 Total Bilirubin 0.6 AST 19 ALT 10 L Alkaline Phosphatase 290 H Total Protein 7.4 Albumin 2.3 L Urine Color Yellow Urine Clarity Cloudy Urine pH 5.5 Ur Specific [place] 1.025 Urine Protein >=300 H Urine Ketones Negative Urine Blood Moderate H Urine Nitrite Negative Urine Bilirubin Negative Urine Urobilinogen 0.2 Ur Leukocyte Esterase Moderate H Urine RBC 5-10 H Urine WBC >50 H Ur Epithelial Cells Rare Urine Crystals Negative Urine Bacteria Negative Urine Mucus Trace Urine Other Few Yeast Ur Culture Indicated? Yes Urine Glucose Negative COVID-19 Source SARS-CoV-2 (PCR) 09/10/23 17:15 WBC RBC Hgb Hct MCV MCH MCHC RDW Plt Count MPV Immature Gran % Neutrophils % Lymphocytes % Monocytes % Eosinophils % Basophils % Nucleated RBC % Absolute Neutrophils Absolute Lymphocytes Absolute Monocytes Absolute Eosinophils Absolute Basophils Sodium Potassium Chloride Carbon Dioxide Anion Gap BUN Creatinine Est GFR (CKD-EPI 2020) Glucose Calcium Total Bilirubin AST ALT Alkaline Phosphatase Total Protein Albumin Urine Color Urine Clarity Urine pH Ur Specific [place] Urine Protein Urine Ketones Urine Blood Urine Nitrite Urine Bilirubin Urine Urobilinogen Ur Leukocyte Esterase Urine RBC Urine WBC Ur Epithelial Cells Urine Crystals Urine Bacteria Urine Mucus Urine Other Ur Culture Indicated? Urine Glucose COVID-19 Source Nasopharynx SARS-CoV-2 (PCR) Negative Last Vital Signs Temp 97.7 F 09/10/23 13:51 Pulse 100 H 09/10/23 17:01 Resp 19 09/10/23 17:01 BP 129/85 10/15/23 17:01 Pulse Ox 98 09/10/23 16:50 Time Spent Time spent with Patient: >75 minutes (80min) Time was spent: preparing to see the patient(eg.review tests), obtaining and/or reviewing separately otained hiistory, ordering medications,tests, procedures, referring, communicating with other health child care education coordinator, indepentently interpreting results and care coordination
[2023-09-10 18:49] LABS: MRSA PCR Negative (Negative)
[2023-09-10 19:28] LABS: Anion Gap 8.2 mmol/L (3-11); BUN 24 mg/dL (7-18); CO2 21.8 mmol/L (21.0-32.0); CREATININE 1.9 mg/dL (0.70-1.30); Calcium 9.4 mg/dL (8.5-10.1); Chloride 106 mmol/L (98-107); Estimated GFR 37.71 (mL/min/1.73m2); Glucose 148 mg/dL (74-106); Potassium 5.9 mmol/L (3.5-5.1); Sodium 136 mmol/L (136-145)
[2023-09-10] MEDS: Gabapentin 600 MG TAB PO (19:48)
[2023-09-10] MEDS: oxyCODONE-CR 20 MG TABCR PO (19:48)
[2023-09-10] MEDS: LORazepam 2 MG/ML VIAL 1 MG IVP (22:53)
[2023-09-11 03:50] VITALS: BP 146/79; PULSE 94; RESP 16; TEMP 36.6; O2SAT 97
[2023-09-11 07:02] LABS: Abs Immature Grans 0.06 10^3/uL (0.0-0.06); Absolute Eosinophil Count 0.23 10^3/uL (0.0-0.7); Absolute Lymphocyte Count 1.41 10^3/uL (1.2-3.4); Absolute Monocyte Count 0.84 10^3/uL (0.1-0.8); Basophils % 0.6; Eosinophils % 1.8; HCT 30.7 % (40.0-50.0); HGB 9.7 g/dL (13.5-17.5); Immature Grans % 0.5; Lymphocytes % 11.3; MCHC 31.6 % (32.0-36.0); MCV 92 fL (80-95); MPV 9.5 fL (8.0-11.0); Monocytes % 6.7; Neutrophils % 79.1; Platelet Count 463 10^3/uL (130-400); RBC 3.34 10^6/uL (4.36-5.78); RDW 14.6 % (11.8-14.1); RDW-SD 49.8 fL; WBC 12.52 10^3/uL (4.4-10.8)
[2023-09-11 07:12] LABS: Absolute Basophil Count 0.08 10^3/uL (0.0-0.2)
[2023-09-11 07:25] LABS: ALT 9 U/L (16-63); AST 18 U/L (15-37); Albumin 1.9 g/dL (3.4-5.0); Alkaline Phosphatase 233 U/L (46-116); Anion Gap 9.1 mmol/L (3-11); BUN 23 mg/dL (7-18); Bilirubin, Total 0.4 mg/dL (0.2-1.0); CO2 20.9 mmol/L (21.0-32.0); CREATININE 1.8 mg/dL (0.70-1.30); Calcium 9.2 mg/dL (8.5-10.1); Chloride 106 mmol/L (98-107); Estimated GFR 40.24 (mL/min/1.73m2); Glucose 164 mg/dL (74-106); Magnesium 1.8 mg/dL (1.8-2.4); Sodium 136 mmol/L (136-145); Total Protein 7.3 g/dL (6.4-8.2)
[2023-09-11 07:26] LABS: Potassium 6.2 mmol/L (3.5-5.1)
[2023-09-11 07:45] VITALS: BP 135/88; PULSE 94; RESP 18; TEMP 36.7; O2SAT 97
[2023-09-11] MEDS: Atorvastatin 40 MG TAB PO (09:53)
[2023-09-11] MEDS: Lisinopril 20 MG TAB 40 MG PO (09:53)
[2023-09-11] MEDS: oxyCODONE-CR 20 MG TABCR PO (09:53)
[2023-09-11] MEDS: Clopidogrel 75 MG TAB PO (09:54)
[2023-09-11] MEDS: Gabapentin 600 MG TAB PO (09:54)
[2023-09-11] MEDS: Pantoprazole 40 MG TABCR PO (09:54)
[2023-09-11] MEDS: Vancomycin 125 MG CAP PO (09:54)
[2023-09-11] MEDS: Aspirin 81 MG CHEW PO (09:54)
--- NOTE | 2023-09-11 10:32 | INITIAL_ITS ---
Date of service: 09/11/23 Time of Service: 10:34 Care Management Initial Assmt Initial Assessment REASON FOR HOSPITALIZATION:: Altered Mental Status, acute kidney injury PREVIOUS FUNCTIONAL STATUS/SOCIAL/FAMILY SUPPORTS:: Nickolas presented from [facility], where he is having short term rehab, after a BKA at [facility] on 08/16/23. He lost his housing in April, and has been staying with a friend. He has a daughter, Karyn, who is his HCA, and is supportive. He is independent at baseline. CURRENT FUNCTIONAL STATUS:: Nickolas was unable to participate in conversation. CM called his daughter, Karyn, (listed as next of kin on paperwork from [facility]), who is his HCA. She provided some history regarding his health, stating that she first brought him to [facility] in September 2022, after he complained of a black toe. She stated that it had to be removed during that hospitalization. In October 2022, he had three more toes amputated, and in November 2022, he had more of his foot removed. She reported that he had osteomyelitis, was on antibiotics, but ended up having a BKA amputation on 08/16/23. She reported that a high school social science teacher from [facility] helped him fill out [place], as well as superintendent [employer] (which was denied, unsure why). Karyn stated that he has had behavioral issues for the past four years, which become worse when he is not feeling well. She stated that at baseline he is mentally ok, and is able to make his own decisions. CM will continue to follow. ADVANCE DIRECTIVES:: Not on file at [facility]. Has patient been provided with info about the portal/API?: Yes Did the patient sign up for the portal?: No CODE STATUS:: Full Code INSURANCE COVERAGE / FINANCIAL ISSUES:: [facility] CURRENT HOME/COMMUNITY SERVICES/EQUIPMENT:: Nickolas currently is receiving short term rehab at [facility] PRIMARY CARE PHYSICIAN:: Amie Farnsworth POTENTIAL DISCHARGE NEEDS:: Coordinated return to [facility] PATIENT/FAMILY EDUCATION NEEDS:: Review discharge instructions and limitations, discussion of self care needs including ask me three. ANTICIPATED BARRIERS TO DISCHARGE:: None identified. TRANSPORTATION:: Via facility w/c van PLAN:: Anticipate Nickolas will return to [facility] once he is medically cleared, where he will resume his short term rehab. He will transport via facility w/c van. He will follow up with his PCP and discharge plan of care. CM will continue to follow. PFSH All Active Problems (Updated 09/10/23 @ 19:35 by Lucio Dickson MD) Severe sepsis (Acute) Sepsis (Acute) Urinary tract infection (Acute) Acute hyperkalemia (Acute) Acute metabolic encephalopathy (Acute) Acute renal insufficiency (Acute) CAD (coronary artery disease) (Chronic) Insulin dependent type 2 diabetes mellitus (Acute) Altered mental status (Acute) Social History Smoking/Tobacco Use Status: Never Smoking risk assessment performed?: Yes Alcohol Intake: former Drug use: Never Substance use type: does not use Housing: assisted living facility Do you feel safe at home: Yes Do you feel safe in your relationship?: Yes
[2023-09-11] MEDS: Sodium Zirconium Cyclosilicate 10 GM PKT PO (18:00)
--- NOTE | 2023-09-11 18:34 | PGE_ITS ---
Date of Service Date of service: 09/11/23 Time of Service: 13:00 Assessment and Plan Assessment and plan (1) Severe sepsis: Status: Acute Assessment and plan: Continue rocephen day 2 -f/u urine and blood cultures both pending (2) Urinary tract infection: Status: Acute Assessment and plan: -as noted above Qualifiers: Urinary tract infection type: site unspecified Hematuria presence: with hematuria Qualified Code(s): N39.0 - Urinary tract infection, site not specified; R31.9 - Hematuria, unspecified (3) Acute hyperkalemia: Status: Acute Assessment and plan: K 6.2 Lokalma given, repeat @ 1845h Trend (4) Acute renal insufficiency: Status: Acute Assessment and plan: -as noted above (5) Acute metabolic encephalopathy: Status: Acute Assessment and plan: -secondary to renal insufficiency and severe sepsis as noted above (6) Insulin dependent type 2 diabetes mellitus: Status: Acute Assessment and plan: -continue home insulin regimen including lantus 14U QHS SS inculin (7) CAD (coronary artery disease): Status: Chronic Assessment and plan: -continue home asa 81mg daily, lipitor 40mg daily, plavix 75mg daily, lisinopril 40mg daily Qualifiers: Coronary Disease-Associated Artery/Lesion type: unspecified vessel or lesion type [place] vs. transplanted heart: [place] heart Associated angina: unspecified whether angina present Qualified Code(s): I25.10 - Atherosclerotic heart disease of [place] coronary artery without angina pectoris Subjective Subjective Patient reports: no new complaints, tolerating a regular diet, voiding w/o difficulty, bowel movement and afebrile; denies diarrhea, nausea or vomiting Exam Narrative Exam Narrative: Const: Well-nourished, Well-developed, appearing stated age HEENT: Eyes: PERRL, no conjunctival injection, and symmetrical lids / EARS Atraumatic external nose and ears / MOUTH Moist MM / NECK: Symmetric, trachea midline, No thyromegaly / THROAT oropharynx clear CVS: RRR, No murmurs or gallops. Peripheral pulses 2+ and equal in all extremities. Brisk capillary refill in all extremities. RESP: Unlabored respiratory effort, Clear to auscultation bilaterally. No wheezes rales or rhonchi GI: Soft, Nontender/Nondistended, No hepatosplenomegaly. No guarding or rebound. MSK: right lower extremity with BKA, jena and sutures intact, mild erythema without significant tenderness fluctuance or drainage Skin: Warm, Dry. No rashes or lesions. 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 Sensation grossly intact, no focal neurologic deficits. Psych: pleasantly confused, follows commands and answers questions Objective Last Vital Signs Temp 36.7 C 09/11/23 07:45 Pulse 94 H 09/11/23 07:45 Resp 18 09/11/23 07:45 BP 135/88 09/11/23 07:45 Pulse Ox 97 09/11/23 07:45 Laboratory Results - last 24 hr 09/10/23 09/10/23 09/11/23 17:15 19:11 06:48 WBC 12.52 H RBC 3.34 L Hgb 9.7 L Hct 30.7 L MCV 92 MCH 29.0 MCHC 31.6 L RDW 14.6 H Plt Count 463 H MPV 9.5 Immature Gran % 0.5 Neutrophils % 79.1 Lymphocytes % 11.3 Monocytes % 6.7 Eosinophils % 1.8 Basophils % 0.6 Nucleated RBC % 0.0 Absolute Neutrophils 9.90 H Absolute Lymphocytes 1.41 Absolute Monocytes 0.84 H Absolute Eosinophils 0.23 Absolute Basophils 0.08 Sodium 136 136 Potassium 5.9 H 6.2 H* Chloride 106 106 Carbon Dioxide 21.8 20.9 L Anion Gap 8.2 9.1 BUN 24 H 23 H Creatinine 1.9 H 1.8 H Est GFR (CKD-EPI 2020) 37.71 40.24 Glucose 148 H 164 H Calcium 9.4 9.2 Magnesium 1.8 Total Bilirubin 0.4 AST 18 ALT 9 L Alkaline Phosphatase 233 H Total Protein 7.3 Albumin 1.9 L MRSA (TEM-PCR) Negative Time Spent with Patient Time Spent with Patient: 35-49 minutes Time was spent: preparing to see the patient(eg.review tests), ordering medications,tests, procedures, referring, communicating with other health rental boats caretaker, indepentently interpreting results, counseling the patient and care coordination
[2023-09-11 19:32] LABS: Anion Gap 10.1 mmol/L (3-11); BUN 24 mg/dL (7-18); CO2 21.9 mmol/L (21.0-32.0); Calcium 9.4 mg/dL (8.5-10.1); Chloride 105 mmol/L (98-107); Estimated GFR 35.46 (mL/min/1.73m2); Glucose 206 mg/dL (74-106); Potassium 5.9 mmol/L (3.5-5.1); Sodium 137 mmol/L (136-145)
[2023-09-11 19:42] VITALS: BP 146/87; PULSE 101; RESP 16; TEMP 36.5; O2SAT 96
[2023-09-11 20:47] LABS: C Diff PCR Negative (Negative)
[2023-09-12] VITALS (7 sets, daily range): BP systolic 107–147; BP diastolic 62–81; PULSE 68–100; RESP 16–18; TEMP 35.8–37; O2SAT 92–100
[2023-09-12] MEDS: LORazepam 2 MG/ML VIAL 0.5 MG IVP ×2 (00:10→01:34)
[2023-09-12] MEDS: Sodium Zirconium Cyclosilicate 10 GM PKT PO (06:17)
[2023-09-12 07:10] LABS: Abs Immature Grans 0.04 10^3/uL (0.0-0.06); Absolute Basophil Count 0.07 10^3/uL (0.0-0.2); Absolute Eosinophil Count 0.27 10^3/uL (0.0-0.7); Absolute Lymphocyte Count 1.36 10^3/uL (1.2-3.4); Absolute Monocyte Count 0.79 10^3/uL (0.1-0.8); Absolute Neutrophil Count 7.75 10^3/uL (1.2-6.7); Basophils % 0.7; Eosinophils % 2.6; HCT 31.3 % (40.0-50.0); HGB 9.9 g/dL (13.5-17.5); Immature Grans % 0.4; Lymphocytes % 13.2; MCH 28.7 pg (27.0-33.0); MCHC 31.6 % (32.0-36.0); MCV 91 fL (80-95); MPV 9.4 fL (8.0-11.0); Monocytes % 7.7; Neutrophils % 75.4; Platelet Count 476 10^3/uL (130-400); RBC 3.45 10^6/uL (4.36-5.78); RDW 14.6 % (11.8-14.1); RDW-SD 48.5 fL; WBC 10.28 10^3/uL (4.4-10.8)
[2023-09-12 07:26] LABS: Anion Gap 8.5 mmol/L (3-11); BUN 23 mg/dL (7-18); CO2 23.5 mmol/L (21.0-32.0); CREATININE 1.9 mg/dL (0.70-1.30); Calcium 9.5 mg/dL (8.5-10.1); Chloride 106 mmol/L (98-107); Estimated GFR 37.71 (mL/min/1.73m2); Glucose 177 mg/dL (74-106); Magnesium 1.7 mg/dL (1.8-2.4); Potassium 4.9 mmol/L (3.5-5.1); Sodium 138 mmol/L (136-145)
[2023-09-12] MEDS: Aspirin 81 MG CHEW PO (07:47)
[2023-09-12] MEDS: oxyCODONE-CR 20 MG TABCR PO ×2 (07:47→21:27)
[2023-09-12] MEDS: Gabapentin 600 MG TAB PO ×2 (07:47→21:28)
[2023-09-12] MEDS: Vancomycin 125 MG CAP PO (07:48)
[2023-09-12] MEDS: Atorvastatin 40 MG TAB PO (07:48)
[2023-09-12] MEDS: Clopidogrel 75 MG TAB PO (07:49)
[2023-09-12] MEDS: Lisinopril 20 MG TAB 40 MG PO (07:49)
[2023-09-12] MEDS: Pantoprazole 40 MG TABCR PO (07:49)
[2023-09-12] MEDS: Insulin Aspart 300 UNITS/3 ML PEN SC ×4 (09:21→21:30)
--- NOTE | 2023-09-12 10:54 | W.PM.PROGNOT ---
Date of Service Date of service: 09/12/23 Time of Service: 10:55 Assessment and Plan Assessment and plan (1) Severe sepsis: Status: Acute Assessment and plan: Ceftriaxone stopped; urine cultures: Gram positive mixed dean with 10-50 K colony count and no Growth in 24 hours blood cultures no growth 24 hours right BKA site from [facility] Aug 16 still with jena: Redness, blanching w/o drainage, painful to patient as reported by RN, but not on exam. Retrieving records from [facility] questioning mangement and infection, WBC 10.28 today, afebrile Considering orthopedic consult once records obtained if needed. (2) Urinary tract infection: Status: Acute Assessment and plan: -as above Qualifiers: Hematuria presence: with hematuria Urinary tract infection type: site unspecified Qualified Code(s): N39.0 - Urinary tract infection, site not specified; R31.9 - Hematuria, unspecified (3) Acute hyperkalemia: Status: Acute Assessment and plan: Potassium 4.9 BMP in AM to f/u (4) Acute renal insufficiency: Status: Acute Assessment and plan: -as noted above Cr 1.9, was 2.0 BUN 23 was 24 (5) Acute metabolic encephalopathy: Status: Acute Assessment and plan: -secondary to renal insufficiency and severe sepsis as noted above (6) Insulin dependent type 2 diabetes mellitus: Status: Acute Assessment and plan: -continue home insulin regimen, FSBS with SS inculin (7) CAD (coronary artery disease): Status: Chronic Assessment and plan: -Will continue home asa 81mg daily, lipitor 40mg daily, plavix 75mg daily, lisinopril 40mg daily Qualifiers: Associated angina: unspecified whether angina present Coronary Disease-Associated Artery/Lesion type: unspecified vessel or lesion type [place] vs. transplanted heart: [place] heart Qualified Code(s): I25.10 - Atherosclerotic heart disease of [place] coronary artery without angina pectoris (8) Discharge planning issues: Status: Acute Assessment and plan: CM f/u to increased in discharge needs Discharge to SNF when medically clear. DVT prophylaxis : Lovenox [place] Subjective Subjective Patient reports: no new complaints (Remains uncooperative during interview), tolerating liquids well, tolerating a regular diet, voiding w/o difficulty, bowel movement, shortness of breath and afebrile; denies flatus, nausea or vomiting Exam Narrative Exam Narrative: Constitutional The patient is lying in bed, sleepy but aorusable, uncooperative during the interview. The patient is acute distress and has average thin body habitus HENMT: Head is atraumatic, normocephalic, no lymphadenopathy. Eyes: Well aligned, but closed most of the time Neck: Normal ROM Neuro:alert at time but sleepy monosyllabic answers, seems confused and easily agitated. No neurological focal deficit, moves all ext. Chest:Chest is symmetrical and normal cachectic in appearance Resp: Normal respiratory pattern, clear lung bilaterally with diminished lower lobes Cardio: regular rhythm, S1, S2 capillary refill<3 sec to all 4 ext.., bilateral radial, left dorsalis pedi, right popliteal pulses are positive, palpable GI: Abdomen is not distended, soft and non tender, bowel sounds are present : Negative Costovertebral angle tenderness, no bladder distension Back/spine/Pelvis: No back tenderness, normal alignment, T 12 mid back spine redness, blanching Integumentary: No rash, redness to T12 midback, right LE amputation site with jena,and dry scabs Extremities: generalized weakness to bilateral lower and upper extremities Psych: RASS 1, anxious when awake mood and labile affect. Objective Last Vital Signs Temp 36.3 C L 09/12/23 07:40 Pulse 100 H 09/12/23 07:40 Resp 16 09/12/23 07:40 BP 147/81 H 09/12/23 07:40 Pulse Ox 96 09/12/23 07:40 Laboratory Results - last 24 hr 09/11/23 09/11/23 09/12/23 17:15 19:00 06:34 WBC 10.28 RBC 3.45 L Hgb 9.9 L Hct 31.3 L MCV 91 MCH 28.7 MCHC 31.6 L RDW 14.6 H Plt Count 476 H MPV 9.4 Immature Gran % 0.4 Neutrophils % 75.4 Lymphocytes % 13.2 Monocytes % 7.7 Eosinophils % 2.6 Basophils % 0.7 Nucleated RBC % 0.0 Absolute Neutrophils 7.75 H Absolute Lymphocytes 1.36 Absolute Monocytes 0.79 Absolute Eosinophils 0.27 Absolute Basophils 0.07 Sodium 137 138 Potassium 5.9 H 4.9 D Chloride 105 106 Carbon Dioxide 21.9 23.5 Anion Gap 10.1 8.5 BUN 24 H 23 H Creatinine 2.0 H 1.9 H Est GFR (CKD-EPI 2020) 35.46 37.71 Glucose 206 H 177 H Calcium 9.4 9.5 Magnesium 1.7 L Stl C.difficile Tox PCR Negative Time Spent with Patient Time Spent with Patient: >50 minutes Time was spent: preparing to see the patient(eg.review tests), ordering medications,tests, procedures, referring, communicating with other health technical healthcare consultant, indepentently interpreting results, counseling the patient and care coordination
--- NOTE | 2023-09-12 10:58 | CMPROGNOTE_ITS ---
Date of service: 09/12/23 Time of Service: 10:58 Care Management Progress Note Progress Note Text Progress Note Text: S/O: Nickolas was sitting up in bed eating breakfast when CM met with him. He stated that he is doing good, and feeling better. CM asked if his daughter is a good support for him, as CM was able to obtain information from her yesterday, and he said that she is supportive. CM reviewed the plan with Nickolas, which will be for him to return to [facility] once he is medically cleared. Per report, he is improving, and may be able to return to [facility] as early as tomorrow, if he continues to improve. CM will continue to follow. A: Nickolas is a 67 year old male admitted to [facility] on 09/10/23 for altered mental status, NATALIE P: Anticipate Nickolas will return to [facility] once he is medically cleared, where he will resume his short term rehab. He will transport via facility w/c van. He will follow up with his PCP and discharge plan of care. CM will continue to follow.
[2023-09-12] MEDS: MAGNESIUM SULFATE 2 GM/50 ML BAG IVPB (11:51)
[2023-09-12] MEDS: Insulin Glargine 300 UNITS/3 ML PEN 14 UNITS SC (21:28)
--- NOTE | 2023-09-13 | DI.US_ITS ---
Exam(s) US RENAL EXAM: US RENAL CLINICAL HISTORY: NATLAIE, ?UTI. TECHNIQUE: Cerna scale, color and spectral Doppler were used. COMPARISON: No exams were available for comparison FINDINGS: Renal size in cm: Right: 11.0. Left: 11.6. Echogenicity: Normal. Hydronephrosis: There is mild prominence of the right renal pelvis. Cyst or mass: No. Nephrolithiasis: No. Other findings: None. Bladder:There is layering debris seen within the urinary bladder. No echogenic shadowing foci are se en to suggest bladder stones. There is diffuse thickening of the wall of the urinary bladder up to 5 .5 mm. Ureteral jets: Right: Visualized and unremarkable. Left: Visualized and unremarkable. Prevoid vol:455 cc Postvoid vol:Despite repeated attempts, the patient was unable to void. Prostate: 35 cc Renal color flow: Symmetric and within normal limits. IMPRESSION: 1. Diffuse thickening of the wall of the urinary bladder. Layering debris seen within the urinary bl adder. No bladder stones are seen. This may represent inflammatory infectious cystitis. Chronic bl adder outlet obstruction/neurogenic bladder should also be considered. Neoplasm cannot be entirely e xcluded. 2. Mild dilatation of the right renal pelvis. This may represent an extrarenal pelvis. The right ur eteral jet was visualized. 3. Enlarged prostate gland. 4. Large urinary bladder volume. Despite repeated attempts during the examination, the patient was u nable to void. DATA REPOSITORY:
[2023-09-13 02:45] VITALS: BP 123/70; PULSE 104; RESP 15; TEMP 37.1; O2SAT 100
[2023-09-13] MEDS: Sodium Zirconium Cyclosilicate 10 GM PKT PO (05:14)
[2023-09-13 07:26] LABS: Abs Immature Grans 0.05 10^3/uL (0.0-0.06); Absolute Basophil Count 0.06 10^3/uL (0.0-0.2); Absolute Monocyte Count 1.07 10^3/uL (0.1-0.8); Absolute Neutrophil Count 11.06 10^3/uL (1.2-6.7); Basophils % 0.4; Eosinophils % 1.8; HCT 30.5 % (40.0-50.0); HGB 9.7 g/dL (13.5-17.5); Immature Grans % 0.4; Lymphocytes % 11.2; MCH 28.9 pg (27.0-33.0); MCHC 31.8 % (32.0-36.0); MCV 91 fL (80-95); MPV 9.7 fL (8.0-11.0); Monocytes % 7.6; Neutrophils % 78.6; Platelet Count 483 10^3/uL (130-400); RBC 3.36 10^6/uL (4.36-5.78); RDW 14.5 % (11.8-14.1); RDW-SD 48.5 fL; WBC 14.07 10^3/uL (4.4-10.8)
[2023-09-13 07:27] LABS: Absolute Eosinophil Count 0.25 10^3/uL (0.0-0.7); Absolute Lymphocyte Count 1.58 10^3/uL (1.2-3.4)
[2023-09-13 07:39] LABS: Magnesium 2.2 mg/dL (1.8-2.4)
[2023-09-13 07:46] LABS: BUN 26 mg/dL (7-18); CREATININE 2.5 mg/dL (0.70-1.30); Calcium 9.3 mg/dL (8.5-10.1); Chloride 107 mmol/L (98-107); Estimated GFR 27.13 (mL/min/1.73m2); Glucose 142 mg/dL (74-106); Potassium 4.9 mmol/L (3.5-5.1); Sodium 137 mmol/L (136-145)
[2023-09-13] MEDS: Atorvastatin 40 MG TAB PO (08:01)
[2023-09-13] MEDS: Aspirin 81 MG CHEW PO (08:01)
[2023-09-13] MEDS: oxyCODONE-CR 20 MG TABCR PO (08:01)
[2023-09-13] MEDS: Clopidogrel 75 MG TAB PO (08:01)
[2023-09-13] MEDS: Pantoprazole 40 MG TABCR PO (08:02)
[2023-09-13] MEDS: Vancomycin 125 MG CAP PO (08:02)
[2023-09-13] MEDS: Gabapentin 600 MG TAB PO ×2 (08:02→21:12)
[2023-09-13] MEDS: Lisinopril 20 MG TAB 40 MG PO (08:02)
[2023-09-13 08:52] VITALS: BP 128/74; PULSE 104; RESP 18; TEMP 36.8; O2SAT 96
[2023-09-13 09:44] LABS: Lab Add On Test DONE
--- NOTE | 2023-09-13 11:40 | CMPROGNOTE_ITS ---
Date of service: 09/13/23 Time of Service: 11:40 Care Management Progress Note Progress Note Text Progress Note Text: S/O: Nickolas was sleeping when CM attempted to visit with him. Per report, his WBC and creatnine are elevated today, therefore he is not medically cleared for discharge. PRITI requested a PT consult, which ordered. He will have repeat labs in the morning, and will be closely monitored for infection. CM will continue to follow. A: Nickolas is a 67 year old male admitted to [facility] on 09/10/23 for altered mental status, NATALIE P: Anticipate Nickolas will return to [facility] once he is medically cleared, where he will resume his short term rehab. He will transport via facility w/c van. He will follow up with his PCP and discharge plan of care. CM will continue to follow.
[2023-09-13 11:58] VITALS: BP 123/76; PULSE 101; RESP 18; TEMP 36.2; O2SAT 94
[2023-09-13] MEDS: Insulin Aspart 300 UNITS/3 ML PEN SC ×2 (12:02→21:10)
[2023-09-13] MEDS: Tamsulosin 0.4 MG CAPCR PO (12:59)
--- NOTE | 2023-09-13 16:22 | W.PM.PROGNOT ---
Date of Service Date of service: 09/13/23 Time of Service: 16:22 Assessment and Plan Assessment and plan (1) Acute metabolic encephalopathy: Status: Acute Assessment and plan: -secondary to renal insufficiency and possible infection long acting morphine contraindicated in setting of renal failure and has been discontinued accordingly, this may be contributing safety precautions (2) Below-knee amputation of right lower extremity: Status: Acute Assessment and plan: at [facility] [place] [place] a few week ago, sutures and jena still in place. mild erythema at site maybe consistent with inflammation from jena/sutures that should likely have already been removed. also reported he's his is stump multiple times. wound is approximated and scabbed over surgical vs orthopedic consultation considered. awaiting [facility] discharge summary. following inflammatory markers. (3) Urinary tract infection: Status: Acute Assessment and plan: received IV ceftriaxone which has been discontinued as urine culture with insignificant mixed growth. craven will be placed for evidence of urinary retention. Qualifiers: Hematuria presence: with hematuria Urinary tract infection type: site unspecified Qualified Code(s): N39.0 - Urinary tract infection, site not specified; R31.9 - Hematuria, unspecified (4) Acute renal insufficiency: Status: Acute Assessment and plan: renal ultrasound with evidence of post obstructive uropathy, started on tamsulosin and to place craven catheter, monitor intake and output closely avoid nephrotoxic drugs, renal dosing as directed Cr rising and at 2.5 today, was normal in January 2023. lisinopril on hold, (5) Acute hyperkalemia: Status: Acute Assessment and plan: d/t NATALIE, normalized now, follow closely BMP in AM to f/u (6) Insulin dependent type 2 diabetes mellitus: Status: Acute Assessment and plan: -continue home insulin regimen, FSBS with SS inculin (7) CAD (coronary artery disease): Status: Chronic Assessment and plan: -Will continue home asa 81mg daily, lipitor 40mg daily, plavix 75mg daily,--- lisinopril 40mg on hold d/t NATALIE Qualifiers: Associated angina: unspecified whether angina present Coronary Disease-Associated Artery/Lesion type: unspecified vessel or lesion type [place] vs. transplanted heart: [place] heart Qualified Code(s): I25.10 - Atherosclerotic heart disease of [place] coronary artery without angina pectoris (8) Discharge planning issues: Status: Acute Assessment and plan: will return to rehab when medically stable. DVT prophylaxis : Lovenox SC discussed with Dr Camara Subjective Subjective Patient reports: no new complaints, tolerating liquids well, tolerating a regular diet and afebrile Exam Const General: disheveled, frail appearing and ill appearing (much older appearing than stated age) chronically Nutritional Appearance: average body habitus Orientation: confused [facility] Head: normal to inspection Mouth: moist mucous membranes abnormal (dry) Chest Chest: normal inspection of the chest Resp Effort & Inspection: normal respiratory effort Auscultation: clear to auscultation bilaterally and diminished lung sounds bilaterally Cardio Rate: regular rate Rhythm: regular rhythm Skin General skin exam: crusts, dry skin, no ecchymosis and erythema Lesions: lesion noted (surgical BKA, mildy erythematous, scabbed, well approx, jena intact) Rashes: rashes noted Neuro General: patient alert, patient awake, oriented Patient Orientation: Person and Confused and no focal motor deficits Objective Last Vital Signs Temp 36.2 C L 09/13/23 11:58 Pulse 101 H 09/13/23 11:58 Resp 18 09/13/23 11:58 BP 123/76 09/13/23 11:58 Pulse Ox 94 09/13/23 11:58 Laboratory Results - last 24 hr 09/13/23 09/13/23 07:10 09:41 WBC 14.07 H RBC 3.36 L Hgb 9.7 L Hct 30.5 L MCV 91 MCH 28.9 MCHC 31.8 L RDW 14.5 H Plt Count 483 H MPV 9.7 Immature Gran % 0.4 Neutrophils % 78.6 Lymphocytes % 11.2 Monocytes % 7.6 Eosinophils % 1.8 Basophils % 0.4 Nucleated RBC % 0.0 Absolute Neutrophils 11.06 H Absolute Lymphocytes 1.58 Absolute Monocytes 1.07 H Absolute Eosinophils 0.25 Absolute Basophils 0.06 Sodium 137 Potassium 4.9 Chloride 107 Carbon Dioxide 21.0 Anion Gap 9.0 BUN 26 H Creatinine 2.5 H Est GFR (CKD-EPI 2020) 27.13 Glucose 142 H Calcium 9.3 Magnesium 2.2 Add-On Test Request DONE Time Spent with Patient Time Spent with Patient: 35-49 minutes Time was spent: preparing to see the patient(eg.review tests), obtaining and/or reviewing separately otained hiistory, ordering medications,tests, procedures and indepentently interpreting results
[2023-09-13 19:13] LABS: Procalcitonin 0.3 ng/mL
[2023-09-13 19:25] LABS: C-Reactive Protein 11.67 mg/dL (0.0-0.3)
[2023-09-13 20:55] VITALS: BP 125/75; PULSE 103; RESP 18; TEMP 36.8
[2023-09-13] MEDS: oxyCODONE 5 MG TAB PO (21:11)
[2023-09-13] MEDS: Insulin Glargine 300 UNITS/3 ML PEN 14 UNITS SC (21:12)
[2023-09-13] MEDS: Ramelteon 8 MG TAB PO (23:15)
[2023-09-13 23:18] VITALS: BP 120/70; PULSE 101; RESP 20; TEMP 37.2
[2023-09-14 04:08] VITALS: BP 113/67; PULSE 95; RESP 20; TEMP 36.8; O2SAT 97
[2023-09-14] MEDS: oxyCODONE 5 MG TAB PO ×2 (06:09→17:32)
[2023-09-14] MEDS: Sodium Zirconium Cyclosilicate 10 GM PKT PO (06:10)
[2023-09-14 07:22] LABS: Abs Immature Grans 0.04 10^3/uL (0.0-0.06); Absolute Basophil Count 0.07 10^3/uL (0.0-0.2); Absolute Eosinophil Count 0.28 10^3/uL (0.0-0.7); Absolute Lymphocyte Count 1.58 10^3/uL (1.2-3.4); Absolute Monocyte Count 0.94 10^3/uL (0.1-0.8); Absolute Neutrophil Count 7.11 10^3/uL (1.2-6.7); Basophils % 0.7; Eosinophils % 2.8; HGB 9.3 g/dL (13.5-17.5); Immature Grans % 0.4; Lymphocytes % 15.8; MCH 28.8 pg (27.0-33.0); MCHC 32.1 % (32.0-36.0); MCV 90 fL (80-95); MPV 9.3 fL (8.0-11.0); Monocytes % 9.4; Neutrophils % 70.9; Platelet Count 453 10^3/uL (130-400); RBC 3.23 10^6/uL (4.36-5.78); RDW 14.2 % (11.8-14.1); RDW-SD 46.8 fL; WBC 10.02 10^3/uL (4.4-10.8)
[2023-09-14 07:35] LABS: Anion Gap 9.4 mmol/L (3-11); BUN 29 mg/dL (7-18); C-Reactive Protein 10.87 mg/dL (0.0-0.3); CO2 22.6 mmol/L (21.0-32.0); CREATININE 2.3 mg/dL (0.70-1.30); Chloride 105 mmol/L (98-107); Estimated GFR 29.99 (mL/min/1.73m2); Glucose 118 mg/dL (74-106); Magnesium 2.1 mg/dL (1.8-2.4); Potassium 4.6 mmol/L (3.5-5.1); Sodium 137 mmol/L (136-145)
[2023-09-14 08:06] VITALS: BP 111/71; PULSE 101; RESP 18; TEMP 36; O2SAT 94
[2023-09-14] MEDS: Clopidogrel 75 MG TAB PO (08:31)
[2023-09-14] MEDS: Pantoprazole 40 MG TABCR PO (08:31)
[2023-09-14] MEDS: Atorvastatin 40 MG TAB PO (08:31)
[2023-09-14] MEDS: Gabapentin 600 MG TAB PO (08:31)
[2023-09-14] MEDS: Tamsulosin 0.4 MG CAPCR PO (08:31)
[2023-09-14] MEDS: Vancomycin 125 MG CAP PO (08:32)
--- NOTE | 2023-09-14 11:08 | IN_ITS ---
Date of service: 09/14/23 Time of Service: 11:08 PT Notes Visit Reasons: Altered Mental Status,Acute Kidney Injury,Hyperkal Physical Therapy Inpatient Initial Evaluation Date: 09/14/2023 Referring Doctor: Leora Camara MD PT Orders: PT CONSULT: Limited ability Precautions: Fall. Contact precautions in place. Activity as tolerated. Patient Profile/Admitting Diagnosis: Nickolas is a 67-year-old male patient admitted to the ED on 09/10/2023 from [facility] due to altered mental status. Patient is admitted for management of severe sepsis, urinary tract infection, acute hyperkalemia, acute metabolic encephalopathy, acute renal insufficiency, coronary artery disease, IDDM, and CAD. He is S/P R transtibial mapuation a few weeks ago. PMHX: All Active Problems (Updated 09/10/23 @ 19:35 by Lucio Dickson MD) Severe sepsis (Acute) Sepsis (Acute) Urinary tract infection (Acute) Acute hyperkalemia (Acute) Acute metabolic encephalopathy (Acute) Acute renal insufficiency (Acute) CAD (coronary artery disease) (Chronic) Insulin dependent type 2 diabetes mellitus (Acute) Altered mental status (Acute) Social History/Home Situation: SNF resident. Lived alone prior to going to the SNF, ramp to enter. Did not use any assistive device prior to surgery. Equipment Owned/DME: FWW Subjective: R BKA jena being removed by Nurse Carrillo when PT arrived. Patient in considerable pain and is agreeable with PT assisting with positioning and gently massaging area proximal to the tip of residual limb. Objective: General Observation: Supine in bed. R transtibial amputation seen. Swelling, mild erythema, necrotic tissue covering 90% of the length of the surgical incision. Nurse Carrillo and another nurse performing staple removeal for patient. Mental Status: Alert and oriented as to person, place, time, and purpose. Able to pay attention, focus, and respond appropriately. Pain: Up to 10/10 on the end of residual limb during staple removal which prompted Nurse Lorena to hold off on and left 8 jena with plan to wait later to complete removal Vital Signs: Closely monitored by nursing staff ROM: Right Lower Extremity: Hip flexion 20 degrees to 90 degrees. Hip extension -20 degrees. Hip abductors WFL. Knee extension 45 degrees to 90 degrees. Knee extension -45 degrees. Knee flexion -45 degrees. Ankle dorsiflexion WFL. Ankle plantarflexion WFL. Left Lower Extremity: Hip flexion WFL. Hip abduction WFL. Knee flexion WFL. Ankle dorsiflexion WFL. Ankle plantarflexion WFL. Strength: Right Lower Extremity: Hip flexors 3-/5. Hip extension 3-/5. Hip abductors 4- /5. Knee flexors /5. Knee extensors 3-/5. Knee flexion 3-/5. Ankle dorsiflexors 3-/5. Ankle plantarflexors 3-/5. Left Lower Extremity: Hip flexors 4/5. Hip abductors 4/5. Knee flexors 4/5. Knee extensors /5. Ankle dorsiflexors 4/5. Ankle plantarflexors 4/5. Bed Mobility/Transfers: Rolling with minimal assist with cues for safe/correct technique Supine to sit minimal assist with cues for safe/correct technique Sit to supine minimal assist with cues for safe/correct technique Sit to stand refused due to pain level Stand to sit refused due to pain level Bed to reclining chair refused due to pain level Reclining chair to bed refused due to pain level Gait: Refused due to pain level Balance: Static Sitting: Goodf Dynamic Sitting: Fair Static Standing: unable Dynamic Standing: Unable Special Tests: Mobility Limitations Standardized Measure [facility]-PAC 6 clicks Basic Mobility Inpatient Short Form: Raw Score: 10 CMS Score: 77% deficit Informed Consent/Education: Patient was instructed in purpose of PT consult and plan of care. Agreeable to proceed with established PT POC to achieve personal goals as soon as his ace n is better managed. ASSESSMENT: Pain level high, anxious about getting out of bed due to pain level. R residual limb unable to relax due to high pain. Will work with patient and ensure that pre-medication is made prior to PT session. Patient will require post-amputation rehabilitation and pre-prosthetic training in anticipation of utilizing a prosthetic leg on the R LE. 90% of incision approximated but laden with necrotic tissue. Residual limb not at desirable shape at this time. Patient presents with clinical signs and symptoms consistent with current/admitting diagnoses that have resulted to mobility limitations, gait instability, generalized weakness, and overall ADL decline as demonstrated by the following impairment level findings: 1. Decreased strength to R hip and knee major muscle groups 2. Impaired sitting/standing balance 3. Impaired activity tolerance 4. Limitation of joint range of motion in L hip and knee 5. High pain level 6. Swelling of R resildual limb 7. Poor residual limb shape Impairments are contributing to the following functional limitations: 1. Decline in bed mobility skills 2. Decline in transfer skills 3. Difficulty with ambulation without assistive device and physical assistance 4. Increased completion time for mobility ADL performance 5. Increased risk for falls 6. Difficulty with managing steps alone safely Patient is assessed as a 39324 moderate complexity based on the following: History: 67-year-old male with past medical history as indicated above Examination: Demonstrable impairment in strength, balance, and mobility level with underlying impairments and functional limitations as exhibited above as well as deficit score of 77% utilizing the [facility] Mobility Inpatient Short Form Presentation: Evolving Decision Makin moderate complexity Goals: Goals X1 week 1. Supine-Sit independent 2. Sit-Supine independent 3. Sit-Stand independent 4. Stand-Sit independent with FWW 5. Bed-Chair independent with FWW 6. Chair-Bed independent with FWW 7. Independent gait on level surface with use of FWW for at least 150 feet without report of pain nor dyspnea 8. Independent with home exercise program 9. Good static and dynamic standing balance/tolerance PLAN OF CARE/TREATMENT PLAN: 1-2x/day, 7 days/week x 1 week. Plan of care has been reviewed with the LOADING MACHINE ADJUSTER providing the service under Physical Therapy direction. Acute post-surgical and preprosthetic plan of care for R transtibial amputation: 1. Manage pain using TENS to promote painless ROM performance in R hip and knee 2. Promote lymphatic flow using retrograde massage starting with R groin area clearing and R axillary clearing followed by R LE drainage 3. Facilitate gentle strencthing exercises to R hip flexors and knee flexors 4. Strengthen hip extensors, hip abductors, knee extensors 5. Desensitization massage when tolerated 6. Bandaging to promote cylindrical residual limb shape 7. Caregiver and patient education on proper positioning to prevent hip/knee flexion contractures DISCHARGE RECOMMENDATIONS: [] Home with no services [] [] Home with services [specify] [] Home with outpatient PT [] [X] SNF for continued rehabilitation. Patient will benefit from care home facility placement for continued skilled physical therapy services in order to progress mobility level, strength, and balance in preparation for a safe discharge to home. [] [facility] [] [] SNF versus LTC based on ability to participate and progress [] TREATMENT CODE/TIME: 02152 x 20 minutes for 1 unit, 97288 x 14 minutes for 1 unit beginning at 11:08 AM. Thank you for the opportunity to participate in the care of this patient. Asuncion Burgos PT, DPT, CLT [facility] [place], [place]
[2023-09-14 11:51] VITALS: BP 126/80; PULSE 97; RESP 19; TEMP 35.9; O2SAT 98
[2023-09-14] MEDS: HYDROmorphone 2 MG/ML SYR 0.5 MG IVP (13:06)
[2023-09-14] MEDS: Normal Saline 1,000 ML 125 ML IV (13:09)
[2023-09-14] MEDS: Insulin Aspart 300 UNITS/3 ML PEN SC ×2 (13:38→17:30)
--- NOTE | 2023-09-14 13:40 | PGE_ITS ---
Date of Service Date of service: 09/14/23 Time of Service: 13:40 Assessment and Plan Assessment and plan (1) Acute metabolic encephalopathy: Status: Acute Assessment and plan: -secondary to renal insufficiency and possible infection long acting morphine contraindicated in setting of renal failure and has been discontinued accordingly, this may be contributing safety precautions (2) Below-knee amputation of right lower extremity: Status: Acute Assessment and plan: [place] [facility] [place], sutures and jena still in place. mild erythema at site maybe consistent with inflammation from jena/sutures that should likely have already been removed. also reported he's his is stump multiple times. wound is approximated and scabbed over surgical vs orthopedic consultation considered. [place] [facility] [place]. following inflammatory markers. (3) Urinary tract infection: Status: Acute Assessment and plan: received IV ceftriaxone which has been discontinued as urine culture with insignificant mixed growth. craven will be placed for evidence of urinary retention. Qualifiers: Hematuria presence: with hematuria Urinary tract infection type: site unspecified Qualified Code(s): N39.0 - Urinary tract infection, site not specified; R31.9 - Hematuria, unspecified (4) Acute renal insufficiency: Status: Acute Assessment and plan: renal ultrasound with evidence of post obstructive uropathy, started on tamsulosin and to place craven catheter, monitor intake and output closely avoid nephrotoxic drugs, renal dosing as directed Cr rising and at 2.5 today, was normal in January 2023. lisinopril on hold, (5) Acute hyperkalemia: Status: Acute Assessment and plan: d/t NATALIE, normalized now, follow closely BMP in AM to f/u (6) Insulin dependent type 2 diabetes mellitus: Status: Acute Assessment and plan: -continue home insulin regimen, FSBS with SS inculin (7) CAD (coronary artery disease): Status: Chronic Assessment and plan: -Will continue home asa 81mg daily, lipitor 40mg daily, plavix 75mg daily,--- lisinopril 40mg on hold d/t NATALIE Qualifiers: Associated angina: unspecified whether angina present Coronary Disease- Associated Artery/Lesion type: unspecified vessel or lesion type [place] vs. transplanted heart: [place] heart Qualified Code(s): I25.10 - Atherosclerotic heart disease of [place] coronary artery without angina pectoris (8) Discharge planning issues: Status: Acute Assessment and plan: will return to rehab when medically stable. DVT prophylaxis : Lovenox SC discussed with Dr Camara Subjective Subjective Patient reports: no new complaints, tolerating liquids well, tolerating a regular diet and afebrile; denies shortness of breath Interval history since last seen: remains confused, did not sleep well all night. craven draining bloody urine, maroon color Exam Const General: disheveled, frail appearing and ill appearing (much older appearing t bran stated age) chronically Nutritional Appearance: average body habitus Orientation: confused [facility] Head: normal to inspection Mouth: moist mucous membranes abnormal (dry) Chest Chest: normal inspection of the chest Resp Effort & Inspection: normal respiratory effort Auscultation: clear to auscultation bilaterally and diminished lung sounds bilaterally Cardio Rate: regular rate Rhythm: regular rhythm Other: craven to gravity drainage, maroon in color, Skin General skin exam: crusts, dry skin, no ecchymosis and erythema Lesions: lesion noted (surgical BKA, mildy erythematous, scabbed, well approx, jena intact) Rashes: rashes noted Neuro General: patient alert, patient awake, oriented Patient Orientation: Person and Confused and no focal motor deficits Psych Appearance: disheveled and other Objective Last Vital Signs Temp 35.9 C L 09/14/23 11:51 Pulse 97 H 09/14/23 11:51 Resp 19 09/14/23 11:51 BP 126/80 09/14/23 11:51 Pulse Ox 98 09/14/23 11:51 Laboratory Results - last 24 hr 09/13/23 09/14/23 18:28 07:11 WBC 10.02 RBC 3.23 L Hgb 9.3 L Hct 29.0 L MCV 90 MCH 28.8 MCHC 32.1 RDW 14.2 H Plt Count 453 H MPV 9.3 Immature Gran % 0.4 Neutrophils % 70.9 Lymphocytes % 15.8 Monocytes % 9.4 Eosinophils % 2.8 Basophils % 0.7 Nucleated RBC % 0.0 Absolute Neutrophils 7.11 H Absolute Lymphocytes 1.58 Absolute Monocytes 0.94 H Absolute Eosinophils 0.28 Absolute Basophils 0.07 Sodium 137 Potassium 4.6 Chloride 105 Carbon Dioxide 22.6 Anion Gap 9.4 BUN 29 H Creatinine 2.3 H Est GFR (CKD-EPI 2020) 29.99 Glucose 118 H Calcium 9.0 Magnesium 2.1 C-Reactive Protein 11.67 H 10.87 H Procalcitonin 0.3 Time Spent with Patient Time Spent with Patient: 35-49 minutes Time was spent: preparing to see the patient(eg.review tests), obtaining and/or reviewing separately otained hiistory, ordering medications,tests, procedures, indepentently interpreting results and counseling the patient
--- NOTE | 2023-09-14 14:28 | SCONE_ITS ---
Date of service: 09/14/23 Time of Service: 14:28 Assessment and Plan Assessment and plan (1) Below-knee amputation of right lower extremity: Status: Acute Assessment and plan: I removed the remaining few sutures today, and dressed the wounds with Mepilex, fluffed gauze, and a loose Bakari wrap. I also applied a knee immobilizer. I do think he benefit from a knee immobilizer while he is in bed, especially with, what sounds like, challenges related to physical therapy. This should help minimize contracture, and hopefully protect the limb from unintentional injury with movement. I would use simple nonadherent dressings over the next 24 to 48 hours. At that point, it may be beneficial to transition over to an enzymatic debrider, to help alleviate some of the eschar. He does not seem to tolerate much in terms of wound care at the bedside. History of Present Illness History of Present Illness Chief Complaint: Amputation wound Narrative: Nickolas is 67 years old, he presents to the [facility] emergency department on September 10 with change in mental status, and family concerned that he was not acting himself. He had a white blood cell count around 13,000 and physiologic criteria consistent with sepsis. Other relevant history includes peripheral arterial disease with a nonhealing wound on the right lower extremity. He was recently treated at [facility] from August 05 through August 23. During that hospital stay, he will underwent right transmetatarsal incision and drainage, and ultimately a right below the knee amputation. It appears that his hospital stay was fairly complicated, including admissions to the intensive care unit for changes in mental status, and concerns for sepsis. Ultimately, he was discharged to rehabilitation. It appears that he may have been seen in [facility]'s emergency department again on the , with concerns of the below- knee amputation incision. At that time, he was noted to have some mild skin dehiscence, as well as bruising of the below-knee amputation site. It appears that he was not seen during his anticipated follow-up on September 05. I am asked to see him today for evaluation of the below-knee amputation site. Gutierrez not able to answer any of my questions consistently. However, he does deny any significant pain at the site. Review of Systems Narrative: I am unable to attain an appropriate review of systems because of his mental status, which is disoriented to time and place. PFSH All Active Problems Urinary retention (Acute) Gross hematuria (Acute) Below-knee amputation of right lower extremity (Acute) Discharge planning issues (Acute) Severe sepsis (Acute) Sepsis (Acute) Urinary tract infection (Acute) Acute hyperkalemia (Acute) Acute metabolic encephalopathy (Acute) Acute renal insufficiency (Acute) CAD (coronary artery disease) (Chronic) Insulin dependent type 2 diabetes mellitus (Acute) Altered mental status (Acute) Social History Smoking/Tobacco Use Status: Never Smoking risk assessment performed?: Yes Alcohol Intake: former Drug use: Never Substance use type: does not use Housing: assisted living facility Do you feel safe at home: Yes Do you feel safe in your relationship?: Yes Exam Extrem Other: The right lower extremity is amputated several centimeters below the knee. There is eschar over a majority of the incision. There are a few areas of skin dehiscence, mostly on the anterior medial aspect of the incision. A number of surgical jena have already been removed. There appears to be some absorbable suture material incorporated to some of the eschar and incision. The wound is not particularly erythematous. There is no discharge. The flap appears well perfused. There does appear to be some resolving ecchymosis. He has mild contracture of the right knee Results Last Vital Signs Temp 96.6 F L 09/14/23 11:51 Pulse 97 H 09/14/23 11:51 Resp 19 09/14/23 11:51 BP 126/80 09/14/23 11:51 Pulse Ox 98 09/14/23 11:51 Labs 09/14/23 07:11 09/14/23 07:11 Labs: Laboratory Results - last 24 hr 09/13/23 09/14/23 18:28 07:11 WBC 10.02 RBC 3.23 L Hgb 9.3 L Hct 29.0 L MCV 90 MCH 28.8 MCHC 32.1 RDW 14.2 H Plt Count 453 H MPV 9.3 Immature Gran % 0.4 Neutrophils % 70.9 Lymphocytes % 15.8 Monocytes % 9.4 Eosinophils % 2.8 Basophils % 0.7 Nucleated RBC % 0.0 Absolute Neutrophils 7.11 H Absolute Lymphocytes 1.58 Absolute Monocytes 0.94 H Absolute Eosinophils 0.28 Absolute Basophils 0.07 Sodium 137 Potassium 4.6 Chloride 105 Carbon Dioxide 22.6 Anion Gap 9.4 BUN 29 H Creatinine 2.3 H Est GFR (CKD-EPI 2020) 29.99 Glucose 118 H Calcium 9.0 Magnesium 2.1 C-Reactive Protein 11.67 H 10.87 H Procalcitonin 0.3
--- NOTE | 2023-09-14 14:39 | UCONE_ITS ---
Date of service: 09/15/23 Time of Service: 07:19 Assessment and Plan Assessment and plan (1) Gross hematuria: Status: Acute (2) Urinary retention: Status: Acute Assessment and plan: There are multiple potential etiologies for both his hematuria and his retention. With no available documentation of prior retention episodes or previous hematuria work-ups, I think we are obligated to start from scratch. He has already had a renal ultrasound and with his current serum creatinine, the use of IV contrast is not recommended. His initial urine culture from this admission did not show any uropathogens. A repeat culture is pending. Recent urine studies at [facility] suggested yeast in the urine on urinalysis, but the culture was unremarkable. His urinary retention can certainly be related to bladder outlet obstruction. With the patient's history of diabetes, poorly contractile bladder is certainly possible, but we would expect to see a more chronic progression compared to this patient's clinical course with the fairly acute rise in his creatinine. A Peter catheter has been placed and he has been started on tamsulosin. A voiding trial can be given after 3 to 5 days of tamsulosin especially if his renal function has improved. If his renal function does not improve with catheter drainage, we may need to ask our nephrology colleagues to see this gentleman as his renal function has only deteriorated over the past few weeks. In order to complete his hematuria work-up, he would likely need a cystoscopy and a retrograde pyelogram unless his pending urine culture shows an infection. If an infection is found, we generally recommend treating the infection and rechecking a urine sample prior to a hematuria work-up. History of Present Illness History of Present Illness Chief Complaint: Hematuria Narrative: This is a 67-year-old gentleman who was admitted with concerns for sepsis. At the time of his admission, the suspected source was his urinary tract, but so far, his urine cultures have been unremarkable. It is difficult to obtain a history from this gentleman. He tells me that he has seen a urologist in the past, but he cannot tell me exactly who he saw or where that encounter occurred. He does recall having had a catheter previously. He believes that was because he was having dysuria rather than because he was in urinary retention. He has a history of osteomyelitis which required an extended course of antibiotics. There is mention in his [facility] records of the presence of C. difficile colitis that was being treated at [facility]. Our records indicate a past history of urinary retention, but I do not find any specific documentation of his previous retention episodes. It does not look like he was on any type of urologic medications at the time of this admission. He has been started on tamsulosin since his admission. He tells me his current indwelling catheter is causing him some discomfort. He does not recall the gross hematuria that was present earlier during this admission, but the presence of blood was well documented by our staff. Review of Systems Unobtainable due to mental status Constitutional Constitutional: Denies chills and Denies fever(s) Cardiovascular Cardiovascular: Denies chest pain at rest Respiratory Respiratory: Denies hemoptysis Gastrointestinal Gastrointestinal: Denies nausea and Denies vomiting PFSH All Active Problems Urinary retention (Acute) Gross hematuria (Acute) Below-knee amputation of right lower extremity (Acute) Discharge planning issues (Acute) Severe sepsis (Acute) Sepsis (Acute) Urinary tract infection (Acute) Acute hyperkalemia (Acute) Acute metabolic encephalopathy (Acute) Acute renal insufficiency (Acute) CAD (coronary artery disease) (Chronic) Insulin dependent type 2 diabetes mellitus (Acute) Altered mental status (Acute) Social History Smoking/Tobacco Use Status: Never Smoking risk assessment performed?: Yes Alcohol Intake: former Drug use: Never Substance use type: does not use Housing: assisted living facility Do you feel safe at home: Yes Do you feel safe in your relationship?: Yes Exam Narrative Exam Narrative: He does not appear to acutely ill. His vital signs are documented elsewhere His abdomen is soft with no guarding or rebound tenderness. A Peter catheter is in place and is draining clear urine He is awake and alert I reviewed his [facility] records. I did not find any urology records, but he was seen by vascular surgery, orthopedics and infectious disease specialists. I did not find any type of renal imaging for comparison. His serum creatinine was 1.24 as recently as 08/29/2023. I found two previous urinalysis results from the past 2 months. Both specimen had a small amount of microscopic hematuria but there is no gross hematuria reported. The urine culture showed gram-positive dean. One of the urinalyses showed the presence of yeast but the culture did not grow out the organism. Results Last Vital Signs Temp 35.9 C L 09/14/23 11:51 Pulse 97 H 09/14/23 11:51 Resp 19 09/14/23 11:51 BP 126/80 09/14/23 11:51 Pulse Ox 98 09/14/23 11:51 Labs 09/14/23 07:11 09/14/23 07:11 Labs: Laboratory Results - last 24 hr 09/13/23 09/14/23 18:28 07:11 WBC 10.02 RBC 3.23 L Hgb 9.3 L Hct 29.0 L MCV 90 MCH 28.8 MCHC 32.1 RDW 14.2 H Plt Count 453 H MPV 9.3 Immature Gran % 0.4 Neutrophils % 70.9 Lymphocytes % 15.8 Monocytes % 9.4 Eosinophils % 2.8 Basophils % 0.7 Nucleated RBC % 0.0 Absolute Neutrophils 7.11 H Absolute Lymphocytes 1.58 Absolute Monocytes 0.94 H Absolute Eosinophils 0.28 Absolute Basophils 0.07 Sodium 137 Potassium 4.6 Chloride 105 Carbon Dioxide 22.6 Anion Gap 9.4 BUN 29 H Creatinine 2.3 H Est GFR (CKD-EPI 2020) 29.99 Glucose 118 H Calcium 9.0 Magnesium 2.1 C-Reactive Protein 11.67 H 10.87 H Procalcitonin 0.3
[2023-09-14 15:21] VITALS: BP 117/75; PULSE 91; RESP 19; TEMP 36.1; O2SAT 97
--- NOTE | 2023-09-14 16:12 | CMPROGNOTE_ITS ---
Date of service: 09/14/23 Time of Service: 16:12 Care Management Progress Note Progress Note Text Progress Note Text: S/O: Nickolas remains acute; extensive discussion during interdisiplinary rounds outlined rising medical needs; limited oral intake; IVF ordered. Awaiting wound consult, sleep and confusion continue to be of concern. CM will continue to follow. A: Nickolas is a 67 year old male admitted to [facility] on 09/10/23 for altered mental status, NATALIE P: Anticipate Nickolas will return to [facility] once he is medically cleared, where he will resume his short term rehab. He will transport via facility w/c van. He will follow up with his PCP and discharge plan of care. CM will continue to follow.
--- NOTE | 2023-09-14 16:22 | PT.INTREAT ---
Date of service: 09/14/23 Time of Service: 15:45 PT Notes Visit Reasons: Altered Mental Status,Acute Kidney Injury,Hyperkal Inpatient Physical Therapy Treatment Note [facility] Date: 09/14/23 PRECAUTIONS: Fall, standard, activity as tolerated. ENTERIC CONTACT PRECAUTIONS. SUBJECTIVE: Patient appears disoriented, possibly hallucinating? Notified RN and DPRajendra Burgos. OBJECTIVE: Patient supine, residual limb abducted, externally rotated, and knee flexed in tightly.? PAIN: none reported or observed, except that residual limb is jumpy. Patient claims it's jumping on its own and has done this ever since [he] was a kid. VITALS: monitored by nursing staff. Manual Therapy ([id number]): stretching applied into knee extension, hip abduction, hip flexion, hip flexion with adduction & external rotation, and hip extension. 2x30 seconds each. Patient's leg noted to become increasingly jumpy with knee extension and hip abduction. ASSESSMENT:? After stretching, patient begins picking at the air around his IV and handing these things to this therapist. Nothing observed in patient's hand. RN notified, as well as DPT Asuncion Burgos, and treatment session is discontinued. Patient also reported pain in his posterior thigh during hip extension stretch. PLAN: Continue treatment per plan of care. Discuss posterior thigh pain with DPRajendra Burgos. TREATMENT CODE/TIME: 17 minutes beginning at 15:45
[2023-09-14] MEDS: Acetaminophen 325 MG TAB PO (21:29)
[2023-09-14] MEDS: Melatonin 3 MG TAB PO (21:29)
[2023-09-14] MEDS: Insulin Glargine 300 UNITS/3 ML PEN 14 UNITS SC (21:31)
[2023-09-14 21:42] VITALS: BP 128/74; PULSE 97; RESP 16; TEMP 36.6; O2SAT 93
[2023-09-15 03:33] VITALS: BP 131/73; PULSE 81; RESP 17; TEMP 35.2; O2SAT 99
[2023-09-15] MEDS: Docusate Sodium 100 MG CAP PO (07:33)
[2023-09-15] MEDS: oxyCODONE 5 MG TAB PO (07:33)
[2023-09-15] MEDS: Clopidogrel 75 MG TAB PO (07:34)
[2023-09-15] MEDS: Pantoprazole 40 MG TABCR PO (07:36)
[2023-09-15] MEDS: Polyethylene Glycol 3350 17 GM PACKET PO (07:36)
[2023-09-15] MEDS: Tamsulosin 0.4 MG CAPCR PO (07:37)
[2023-09-15] MEDS: Vancomycin 125 MG CAP PO (07:37)
[2023-09-15] MEDS: Aspirin 81 MG CHEW PO (07:37)
[2023-09-15] MEDS: Atorvastatin 40 MG TAB PO (07:37)
[2023-09-15 07:53] VITALS: BP 133/77; PULSE 83; RESP 18; TEMP 36; O2SAT 97
[2023-09-15] MEDS: Gabapentin 300 MG CAP PO (09:05)
[2023-09-15] MEDS: Enoxaparin 30 MG/0.3 ML SYR SC (09:06)
--- NOTE | 2023-09-15 10:10 | W.NUTRFU ---
Date of service: 09/15/23 Time of Service: 10:10 Nutrition Note NOTE: Consult - Diabetes Education Mr Gonzalez is a 67yo male admitted with multiple acute concerns (see problem list) and a history of DMII with insulin dependence, with most Current A1C lab in chart of 9.9% back in 2011. S/P BKA of R lower extremity at [facility]. Current AC glucose is erratic with a few >200 and could be expected in his acute state of illness, however judging from his historic A1C, poor control at baseline is probable. Ordered for home dose of insulin Glargine of 14units HS and a moderate SS of insulin aspart for meals. Unable to meet with pt today as he was sleeping at upon my visit. Pt currently ordered for heart healthy diet with normal consistencies. Recommendations: add consistent CHO diet order, consider prealbumin lab to better assess pt protein status Interventions: will monitor weight and intake closely as pt is at greater risk of malnutrition. Time Spent in Nutritional Counseling and Treatment: 30 minutes in chart review and documenting
--- NOTE | 2023-09-15 10:21 | W.PM.PROGNOT ---
Date of Service Date of service: 09/15/23 Time of Service: 10:21 Subjective Subjective Patient reports: no new complaints, tolerating liquids well, tolerating a regular diet and afebrile Objective Last Vital Signs Temp 36 C L 09/15/23 07:53 Pulse 83 09/15/23 07:53 Resp 18 09/15/23 07:53 BP 133/77 09/15/23 07:53 Pulse Ox 97 09/15/23 07:53
--- NOTE | 2023-09-15 10:36 | PTTR_ITS ---
Date of service: 09/15/23 Time of Service: 10:03 PT Notes Visit Reasons: Altered Mental Status,Acute Kidney Injury,Hyperkal Inpatient Physical Therapy Treatment Note [facility] Date: 09/15/23 PRECAUTIONS: Fall, standard, activity as tolerated. ENTERIC CONTACT PRECAUTIONS. SUBJECTIVE: Patient reports confusion and frustration about his medications. RN notified. Expresses a desire to have his bed moved so that he can see out the window. Refuses getting up to the chair. Reports he is too weak to get out of bed and feels bleh but won't explain - denies nausea, fatigue, pain. OBJECTIVE: Patient supine in bed. ? PAIN: Only expresses pain in back from position in bed, denies pain in residual limb except as noted below. VITALS: monitored by nursing staff ? BED MOBILITY/TRANSFERS? Rolling L/R: Independent Supine-sit: not assessed? Sit-supine: not assessed ? Sit-stand: refused? Stand-sit: not assessed ? Bed-Chair: refused ? Chair-bed: not assessed. ? Therapeutic Exercises ([id number]): Direct one-on-one instruction in therapeutic exercises to develop strength, endurance, range of motion and flexibility. ? Exercises * SLR 1x10 bilateral. When doing SLR with left leg, patient reports pain in residual limb from the pressure of stabilizing his body. Facilitated stabilization through torso instead, patient reports less pain. * SAQ's 2x10 * Ankle pumps x10 LLE only. * Hip abduction 2x10 * Bridges x5 * Heel slides x10 LLE only Manual Therapy ([id number]): Manual stretching applied to RLE into knee extension, hip flexion, hip abduction, hip flexion with adduction, and hip extension. Each stretch is held at a moderate intensity for 2x30 seconds. Patient reports no pain. Return to kn ee extension, grade 1 AP/PA glides applied to tibia with knee in semi-open and closed positions. ASSESSMENT:? Patient is much more alert today, cooperative and participates well in therapy. PLAN: Continue treatment per plan of care until patient is medically cleared for discharge. TREATMENT CODE/TIME: 31 minutes beginning at 10:03
--- NOTE | 2023-09-15 10:51 | PDOC.CMPRO ---
Date of service: 09/15/23 Time of Service: 10:51 Care Management Progress Note Progress Note Text Progress Note Text: S/O: A: Nickolas is a 67 year old male admitted to [facility] on 09/10/23 for altered mental status, NATALIE P: Anticipate Nickolas will return to [facility] once he is medically cleared, where he will resume his short term rehab. He will transport via facility w/c van. He will follow up with his PCP and discharge plan of care. CM will continue to follow.
[2023-09-15 11:16] VITALS: BP 105/61; PULSE 92; RESP 19; TEMP 35.9; O2SAT 99
[2023-09-15] MEDS: Insulin Aspart 300 UNITS/3 ML PEN SC (12:27)
[2023-09-15] MEDS: Lactated Ringers 1,000 ML 125 ML IV (12:50)
--- NOTE | 2023-09-15 13:53 | W.PM.DS.N ---
Date of service: 09/15/23 Time of Service: 13:53 DS: Diagnosis Discharge Diagnosis (1) Gross hematuria: Status: Acute Asessment and Plan: resolving. was seen by urology. per note: There are multiple potential etiologies for both his hematuria and his retention. With no available documentation of prior retention episodes or previous hematuria work-ups, I think we are obligated to start from scratch. He has already had a renal ultrasound and with his current serum creatinine, the use of IV contrast is not recommended. His initial urine culture from this admission did not show any uropathogens. A repeat culture is pending. Recent urine studies at [facility] suggested yeast in the urine on urinalysis, but the culture was unremarkable. His urinary retention can certainly be related to bladder outlet obstruction. With the patient's history of diabetes, poorly contractile bladder is certainly possible, but we would expect to see a more chronic progression compared to this patient's clinical course with the fairly acute rise in his creatinine. In order to complete his hematuria work-up, he would likely need a cystoscopy and a retrograde pyelogram unless his pending urine culture shows an infection. If an infection is found, we generally recommend treating the infection and rechecking a urine sample prior to a hematuria work-up. (2) Urinary retention: Status: Acute Asessment and Plan: A Craven catheter has been placed and he has been started on tamsulosin. A voiding trial can be given after 3 to 5 days of tamsulosin especially if his renal function has improved. If his renal function does not improve with catheter drainage, nephrology consultation as outpatient as his renal function has only deteriorated over the past few weeks. (3) Acute renal insufficiency: Status: Acute Asessment and Plan: creatinine improving after IV fluids and craven catheter placement. continue to trend closely outpatient, check basic metabolic panel on Monday, his lisinopril has been on hold and blood pressure has been stable, monitor and adjust medication as needed. continue to avoid nephrotoxic drugs and renal dose as needed. (4) Below-knee amputation of right lower extremity: Status: Acute Asessment and Plan: jena have been removed and it is now dressed with Mepilex,. Can use fluffed gauze, and a loose Bakari wrap to protect. Also could benefit from a knee immobilizer while he is in bed, especially with, what sounds like, challenges related to physical therapy. This should help minimize contracture, and hopefully protect the limb from unintentional injury with movement. Use nonadherent dressings over the next 24 to 48 hours. At that point, it may be beneficial to transition over to an enzymatic debrider, to help alleviate some of the eschar. (5) Altered mental status: Status: Resolved Asessment and Plan: patient now at baseline. thought to be combination of renal failure with long acting opioid. no infection found. blood cultures and urine cultures negative. Discharge Plan Disposition Patient Disposition: Swing Bed(Skilled,SB1) Condition: Improving Discharge Details Reason For Visit: Altered Mental Status,Acute Kidney Injury,Hyperkal Admit Date/Time: 09/10/23 15:45 Admit Provider: Shashi Krueger Attending Provider: Shashi Krueger Primary Care Provider: Amie Farnsworth Home Meds and New Rx's Prescriptions: New tamsulosin 0.4 mg Capsule 0.4 mg PO DAILY Qty: 30 0RF oxycodone 5 mg Tablet 5 mg PO Q8H PRN PRNQty: 12 0RF Continued aspirin 81 mg capsule 81 mg PO DAILY atorvastatin 40 mg tablet 40 mg PO DAILY clopidogrel 75 mg tablet 75 mg PO DAILY cyclobenzaprine 5 mg tablet 5 mg PO TID PRN bisacodyl [Dulcolax (bisacodyl)] 10 mg suppository 10 mg ME DAILY PRN Fleet Enema 19-7 gram/118 mL enema 118 ml ME DAILY PRN gabapentin 600 mg tablet 600 mg PO BID glucagon 1 mg kit IM PRN insulin glargine 100 unit/mL solution 14 unit subcut QPM magnesium hydroxide 400 mg/5 mL suspension 400 mg PO QID polyethylene glycol 3350 [HealthyLax] 17 gram powder in packet 17 g PO ONCE naloxone 4 mg/actuation spray,non-aerosol 4 mg intranasal Q2-3M PRN Rx Instructions: spray 1 dose into ONE nostril; alternate nostrils w each dose until help arrives Oxaydo 5 mg tablet, oral only 5 mg PO Q8H pantoprazole 40 mg tablet,delayed release (DR/EC) 40 mg PO DAILY potassium chloride [Klor-Con M20] 20 mEq tablet,ER particles/crystals 40 meq PO DAILY vancomycin [Firvanq] 50 mg/mL recon soln 125 mg PO DIRECTED Rx Instructions: take 125 mg 4 times per day for 10 days; 2 times per day for 7 days; once daily for 7 days; once every 2-3 days for 2-8 weeks Held lisinopril 40 mg tablet 40 mg PO DAILY Hold Instructions: until discussed with outpatient team oxycodone [OxyContin] 20 mg tablet,oral only,ext.rel.12 hr 20 mg PO Q12H Hold Instructions: use short acting Discharge Instructions Instructions: Acute Kidney Injury (DC), Urinary Retention in Men (ED), Altered Mental Status (ED) Additional Instructions: outpatient labs on Monday void trial in 3-5 days wound care consult Referrals: Amie Farnsworth [Primary Care Provider] - Activity:: Activity as Tolerated Equipment/Supplies:: No Equipment Needed Diet:: As Tolerated DS: Summary Time Spent with Patient providing and/or coordinating discharge services: Greater than 30 minutes Status at Discharge Functional status at discharge: wheelchair bound Overall status at discharge: patient is progressing back to baseline Mental Status: mental status grossly normal Speech and Movement: speech and movement normal Mood: congruent mood Affect: normal affect Exam Const General: disheveled, frail appearing and ill appearing (much older appearing than stated age) chronically Nutritional Appearance: average body habitus Orientation: confused HENMT Head: normal to inspection Mouth: moist mucous membranes abnormal (dry) Chest Chest: normal inspection of the chest Resp Effort & Inspection: normal respiratory effort Auscultation: clear to auscultation bilaterally and diminished lung sounds bilaterally Cardio Rate: regular rate Rhythm: regular rhythm Other: craven to gravity drainage, maroon in color, Skin General skin exam: crusts, dry skin, no ecchymosis and erythema (mild, improving) Lesions: lesion noted (surgical BKA, mildy erythematous, scabbed, well approx, mepilex intact) Rashes: no rashes (no surrounding erythema) and rashes noted Neuro General: patient alert, patient awake, oriented Patient Orientation: Person and Confused and no focal motor deficits Psych Appearance: disheveled and other Mental Status: mental status grossly normal Speech and Movement: speech and movement normal Mood: congruent mood Affect: normal affect DS: Data Vitals/I&O Vitals and I&O: Vital Signs Temperature 35.9 C L 09/15/23 11:16 Temperature Source Tympanic 09/15/23 11:16 Pulse 92 H 09/15/23 11:16 Pulse Rhythm Regular 09/15/23 09:10 Pulse 102 H 09/10/23 17:01 Respiratory Rate 19 09/15/23 11:16 Respiratory Effort Normal 09/15/23 09:10 Respiratory Depth Normal 09/15/23 09:10 Respiratory Pattern Normal 09/15/23 09:10 Blood Pressure 105/61 09/15/23 11:16 Blood Pressure Mean 98 09/10/23 17:01 Pulse Oximetry 99 09/15/23 11:16 Oxygen Delivery Method Room Air 09/15/23 11:16 Oxygen Flow Rate 0 09/15/23 11:16 Pain Level 0 09/15/23 11:16 Comment pt refused temp nurse notified 09/12/23 23:25 Intake & Output 09/14/23 09/15/23 09/15/23 23:59 11:59 23:59 Intake Total 360 / 360 1300 / 1300 Output Total 250 / 700 1050 / 1050 Balance 110 / -340 250 / 250 Weight 63 kg Intake: IV 1050 / 1050 Oral 360 / 360 250 / 250 Output: Urine 250 / 700 1050 / 1050 Other: Urine Color Bright Red Light Becky Urine Appearance Clear Cloudy Stool Size Smear Stool Characteristics Brown Data Completed and Pending Labs on day of discharge: Preliminary micro results at discharge 09/13/23 17:59 Urine Culture - Preliminary Urine - Cath Craven Indwelling YEAST 09/10/23 16:23 Blood Culture - Preliminary Blood NO GROWTH 96 HOURS 09/10/23 16:11 Blood Culture - Preliminary Blood NO GROWTH 96 HOURS PFSH All Active Problems (Updated 09/15/23 @ 14:00 by Yani Negro NP) Urinary retention (Acute) Gross hematuria (Acute) Below-knee amputation of right lower extremity (Acute) Discharge planning issues (Acute) Severe sepsis (Acute) Sepsis (Acute) Urinary tract infection (Acute) Acute hyperkalemia (Acute) Acute metabolic encephalopathy (Acute) Acute renal insufficiency (Acute) CAD (coronary artery disease) (Chronic) Insulin dependent type 2 diabetes mellitus (Acute) Social History Smoking/Tobacco Use Status: Never Smoking risk assessment performed?: Yes Alcohol Intake: former Drug use: Never Substance use type: does not use Housing: assisted living facility Do you feel safe at home: Yes Do you feel safe in your relationship?: Yes Time Spent with Patient Time Spent with Patient: 45-69 minutes Time was spent: preparing to see the patient(eg.review tests), obtaining and/or reviewing separately otained hiistory, ordering medications,tests, procedures and indepentently interpreting results
--- NOTE | 2023-09-15 15:04 | PDOC.CMDIS ---
Date of service: 09/15/23 Time of Service: 15:04 LACE Index Scoring Tool Questions: Length of Stay (in days): 4 - 6 Was the patient admitted via the E.D.?: Yes Comorbidities: Diabetes w/o Complication E.D. Visits: 0 Answers: Total Score: 8 Risk of Readmission: Low Risk Care Management Discharge Plan Reason for Hospitalization: Altered Mental Status, acute kidney injury Discharge Plan: Nickolas returned to [facility] today for continued rehab. He was transported via [facility] w/[facility] [employer] ([employer]), coordinated by CM. He will follow up with his PCP and discharge plan of care. He is happy to be going back to rehab. Patient/Family Education Needs: Review discharge instructions and limitations, discussion of self care needs including ask me three. Services Needed at Discharge: [facility] ([facility]) and Transportation ([facility] [employer]/shuttle)
[2023-09-15 15:34] VITALS: BP 131/78; PULSE 89; RESP 18; TEMP 35; O2SAT 99
--- NOTE | 2023-09-20 08:12 | PT.INDS ---
PT Notes Visit Reasons: Altered Mental Status,Acute Kidney Injury,Hyperkal Physical Therapy Inpatient Discharge Summary Date: 09/14/2023 - 09/15/23 Referring Doctor: Leora Camara MD PT Orders: PT CONSULT: Limited ability Precautions: Fall. Contact precautions in place. Activity as tolerated. This document serves as a summary of care. No PT services were provided on this date. Patient Profile/Admitting Diagnosis: Nickolas is a 67-year-old male patient admitted to the ED on 09/10/2023 from SNF due to altered mental status. Patient was admitted for management of severe sepsis, urinary tract infection, acute hyperkalemia, acute metabolic encephalopathy, acute renal insufficiency, coronary artery disease, IDDM, and CAD. He is S/P R transtibial ampuation a few weeks ago. Patient participated in 3 sessions of PT intervention over the course of 2 days. He demonstrated continued mobility impairments, and was able to transition to SNF for ongoing intervention on 09/15/23. PMHX: All Active Problems (Updated 09/10/23 @ 19:35 by Lucio Dickson MD) Severe sepsis (Acute) Sepsis (Acute) Urinary tract infection (Acute) Acute hyperkalemia (Acute) Acute metabolic encephalopathy (Acute) Acute renal insufficiency (Acute) CAD (coronary artery disease) (Chronic) Insulin dependent type 2 diabetes mellitus (Acute) Altered mental status (Acute) Social History/Home Situation: SNF resident. Lived alone prior to going to the SNF, ramp to enter. Did not use any assistive device prior to surgery. Equipment Owned/DME: [facility] Subjective: none Objective: ROM: Right Lower Extremity: Hip flexion 20 degrees to 90 degrees. Hip extension -20 degrees. Hip abductors WFL. Knee extension 45 degrees to 90 degrees. Knee extension -45 degrees. Knee flexion -45 degrees. Ankle dorsiflexion WFL. Ankle plantarflexion WFL. Left Lower Extremity: Hip flexion WFL. Hip abduction WFL. Knee flexion WFL. Ankle dorsiflexion WFL. Ankle plantarflexion WFL. Strength: Right Lower Extremity: Hip flexors 3-/5. Hip extension 3-/5. Hip abductors 4-/5. Knee flexors /5. Knee extensors 3-/5. Knee flexion 3-/5. Ankle dorsiflexors 3-/5. Ankle plantarflexors 3-/5. Left Lower Extremity: Hip flexors 4/5. Hip abductors 4/5. Knee flexors 4/5. Knee extensors /5. Ankle dorsiflexors 4/5. Ankle plantarflexors 4/5. Bed Mobility/Transfers: Rolling with minimal assist with cues for safe/correct technique Supine to sit minimal assist with cues for safe/correct technique Sit to supine minimal assist with cues for safe/correct technique Sit to stand refused due to pain level Stand to sit refused due to pain level Bed to reclining chair refused due to pain level Reclining chair to bed refused due to pain level Gait: Refused due to pain level Balance: Static Sitting: Goodf Dynamic Sitting: Fair Static Standing: unable Dynamic Standing: Unable ASSESSMENT: Patient participated in 3 sessions of PT intervention over the course of 2 days. He demonstrated continued mobility impairments, and was able to transition to SNF for ongoing intervention on 09/15/23. Goals: Goals X1 week 1. Supine-Sit independent (NOT MET) 2. Sit-Supine independent(NOT MET) 3. Sit-Stand independent(NOT MET) 4. Stand-Sit independent with FWW(NOT MET) 5. Bed-Chair independent with FWW(NOT MET) 6. Chair-Bed independent with FWW(NOT MET) 7. Independent gait on level surface with use of FWW for at least 150 feet without report of pain nor dyspnea(NOT MET) 8. Independent with home exercise program (NOT MET) 9. Good static and dynamic standing balance/tolerance (NOT MET) PLAN OF CARE/TREATMENT PLAN: D/C FROM PT IN ACUTE CARE SETTING DISCHARGE RECOMMENDATIONS: [] Home with no services [] [] Home with services [specify] [] Home with outpatient PT [] [X] SNF for continued rehabilitation. Patient will benefit from senior care facility placement for continued skilled physical therapy services in order to progress mobility level, strength, and balance in preparation for a safe discharge to home. [] Intermediate Care [] [] SNF versus LTC based on ability to participate and progress [] TREATMENT CODE/TIME: NONE Thank you for the opportunity to participate in the care of this patient. Leah Covarrubias PT, DPT [facility] [place], [place]
== END 2023-09-15 17:00 | disposition swing bed (61) | DRG 871 ==
LOC: ER 16:22 → MS 18:25
PROVIDERS: Emergency Medicine; Internal Medicine; Nurse Practitioner Acute Care; Nurse Practitioner Family; Admitting Provider Family Medicine; Emergency Provider Emergency Medicine; PCP Nurse Practitioner Family; Visit Provider Family Medicine
DX: A41.9 Sepsis, unspecified organism (principal); G93.41 Metabolic encephalopathy; N39.0 Urinary tract infection, site not specified; T81.31XA Disruption of external operation (surgical) wound, not elsewhere classified, initial encounter; N17.9 Acute kidney failure, unspecified; R65.20 Severe sepsis without septic shock; E87.5 Hyperkalemia; E11.9 Type 2 diabetes mellitus without complications; Z79.4 Long term (current) use of insulin; I25.10 Atherosclerotic heart disease of native coronary artery without angina pectoris; R31.0 Gross hematuria; R33.9 Retention of urine, unspecified; Z89.511 Acquired absence of right leg below knee; M24.561 Contracture, right knee; I73.9 Peripheral vascular disease, unspecified
CPT/HCPCS: 00123; 36415; 51798; 76770; 80048; 80053; 82947; 82962; 84145; 87040; 87493; 87635; 87641; 93005; 96361; 96365; 96375; 96376; 97110; 97140; 97162; 97530; 99222; 99285; 81003; 81015; 83735; 85025; 86140; 87086; 93010; 99223; 99232; 99233; 99239; J1170; J1650; J1940; J2060

== ENCOUNTER → 2023-09-14 09:27 | Outpatient (BNVA) | payer MEDICARE, SELFPAY | PROVIDERS: PCP Nurse Practitioner Family; Referring Provider Nurse Practitioner Family; Visit Provider Urology ==

== ENCOUNTER 2023-09-25 15:12 | Outpatient (REF) | payer MEDICARE, SELFPAY ==
[2023-09-25 16:09] LABS: Abs Immature Grans 0.04 10^3/uL (0.0-0.06); Absolute Lymphocyte Count 1.37 10^3/uL (1.2-3.4); Absolute Monocyte Count 0.77 10^3/uL (0.1-0.8); Absolute Neutrophil Count 9.76 10^3/uL (1.2-6.7); Basophils % 0.3; Eosinophils % 0.3; HCT 28.7 % (40.0-50.0); HGB 9.4 g/dL (13.5-17.5); Immature Grans % 0.3; Lymphocytes % 11.4; MCH 28.3 pg (27.0-33.0); MCHC 32.8 % (32.0-36.0); MCV 86 fL (80-95); MPV 9.6 fL (8.0-11.0); Monocytes % 6.4; Neutrophils % 81.3; Platelet Count 434 10^3/uL (130-400); RBC 3.32 10^6/uL (4.36-5.78); RDW 13.8 % (11.8-14.1); RDW-SD 43.4 fL
[2023-09-25 16:11] LABS: Absolute Basophil Count 0.04 10^3/uL (0.0-0.2); Absolute Eosinophil Count 0.04 10^3/uL (0.0-0.7)
[2023-09-25 16:23] LABS: ALT 13 U/L (16-63); AST 17 U/L (15-37); Albumin 2.1 g/dL (3.4-5.0); Alkaline Phosphatase 122 U/L (46-116); Anion Gap 10.5 mmol/L (3-11); BUN 31 mg/dL (7-18); Bilirubin, Direct 0.1 mg/dL (0.0-0.2); Bilirubin, Total 0.3 mg/dL (0.2-1.0); CO2 24.5 mmol/L (21.0-32.0); CREATININE 1.8 mg/dL (0.70-1.30); Calcium 8.6 mg/dL (8.5-10.1); Chloride 98 mmol/L (98-107); Estimated GFR 40.24 (mL/min/1.73m2); Glucose 182 mg/dL (74-106); Potassium 4.4 mmol/L (3.5-5.1); Sodium 133 mmol/L (136-145); Total Protein 6.6 g/dL (6.4-8.2)
== END 2023-09-25 15:13 | disposition home or self-care (01) ==
LOC: LBN 15:12
PROVIDERS: PCP Nurse Practitioner Family; Visit Provider Nurse Practitioner Adult Health
DX: L03.90 Cellulitis, unspecified (principal)
CPT/HCPCS: 80053; 80076; 85025

== ENCOUNTER 2023-09-29 17:22 | Emergency (ER) | payer MEDICARE, SELFPAY ==
[2023-09-29 17:23] VITALS: BP 110/46; PULSE 85; RESP 12; TEMP 36.6; O2SAT 98
--- NOTE | 2023-09-29 17:54 | W.ED.GENAD ---
Discharge Plan Disposition Patient Disposition: Home Condition: Stable Discharge Details Clinical Impression: Ulcer of penis, Acute urinary retention Primary Care Provider: Amie Farnsworth ED Provider: Elvi Samano Home Meds and New Rx's Prescriptions: New mupirocin 2 % ointment 1 applic topical BID Qty: 15 0RF cefuroxime axetil 500 mg tablet 500 mg PO BID Qty: 20 0RF nystatin 100,000 unit/gram cream 1 applic topical QID Qty: 30 0RF Continued aspirin 81 mg capsule 81 mg PO DAILY atorvastatin 40 mg tablet 40 mg PO DAILY clopidogrel 75 mg tablet 75 mg PO DAILY cyclobenzaprine 5 mg tablet 5 mg PO TID PRN bisacodyl [Dulcolax (bisacodyl)] 10 mg suppository 10 mg OR DAILY PRN Fleet Enema 19-7 gram/118 mL enema 118 ml OR DAILY PRN gabapentin 600 mg tablet 600 mg PO BID glucagon 1 mg kit 1 mg IM PRN insulin glargine 100 unit/mL solution 14 unit subcut QPM lisinopril 40 mg tablet 40 mg PO DAILY Hold Instructions: until discussed with outpatient team magnesium hydroxide 400 mg/5 mL suspension 400 mg PO QID PRN polyethylene glycol 3350 [HealthyLax] 17 gram powder in packet 17 g PO ONCE naloxone 4 mg/actuation spray,non-aerosol 4 mg intranasal Q2-3M PRN Rx Instructions: spray 1 dose into ONE nostril; alternate nostrils w each dose until help arrives Oxaydo 5 mg tablet, oral only 5 mg PO Q8H pantoprazole 40 mg tablet,delayed release (DR/EC) 40 mg PO DAILY potassium chloride [Klor-Con M20] 20 mEq tablet,ER particles/crystals 40 meq PO DAILY vancomycin [Firvanq] 50 mg/mL recon soln 125 mg PO DIRECTED Rx Instructions: take 125 mg 4 times per day for 10 days; 2 times per day for 7 days; once daily for 7 days; once every 2-3 days for 2-8 weeks tamsulosin 0.4 mg Capsule 0.4 mg PO DAILY Qty: 30 0RF acetaminophen 325 mg capsule 650 mg PO Q4H PRN amlodipine 5 mg tablet 5 mg PO DAILY Patient Comments: TAKE 1 TABLET BY MOUTH EVERY DAY AT BEDTIME oxycodone 10 mg tablet,oral only,ext.rel.12 hr 10 mg PO BID Saccharomyces venita 250 mg capsule 250 mg PO BID oxycodone 5 mg Tablet 5 mg PO Q6H PRN Discharge Instructions Instructions: Urinary Retention in Men (ED) Additional Instructions: take antibiotics as prescribed apply mupirocin topically 2-3 times a day clean wound twice a day you have refused craven catheter and straight catheter to check your urine for infection, or relieve the urine in your bladder you have declined intervention, i do recommend reassessment and urinalysis when you arrive home a referral has been placed for urology, please follow-up as soon as possible Referrals: Amie Farnsworth [Primary Care Provider] - Discharge Data Discharge Date/Time-TO BE ENTERED AT DEPARTURE: 09/29/23 21:00 Medical Decision Making 67-year-old male presenting to this facility with report of lesion and redness to the glans of his penis, patient states this is been present for approximately 2 to 3 weeks, it started while he had a Craven catheter in place for patient He states he is able to urinate without difficulty, he has a ulceration with some superficial eschar to the 6 o'clock position adjacent to his meatus which does not involve his meatus, he has erythema to the glans, there is no evidence of paraphimosis Patient is alert and oriented, he has declined large amount of his work-up was agreeable to a blood sugar was 180 I reviewed his labs from a week ago which did not show significant acute abnormality or change bladder scan was performed as pt was unable to supply urine and was 434 pt refused craven catheter placement and is aware of risks associated with decision placed on urology list for follow-up and close outpatient reassessment HPI General Date/Time Provider Initiated Documentation: 09/29/23 17:32. HPI Narrative: This 67-year-old male presents with erythema to penis which started post catheter removal. He denies any fever or chills. He otherwise feels within normal limits. He states he does have pain overlying the area of redness on his penis and ulceration. His catheter was removed approximately 2 weeks ago. He states he is able to urinate without difficulty. He denies any abdominal pain or flank pain. He did have a fall 2 days ago and landed directly on his right hip, he was asked to have a hip x-ray done during his visit to the emergency department today. He denies any additional injuries associated with this fall. He specifically denies any head injury, flank pain, abdominal pain, chest pain, shortness of breath, or dizziness. Related Data Home Medications Medication Instructions Recorded Confirmed aspirin 81 mg capsule 81 mg PO DAILY 09/10/23 09/29/23 atorvastatin 40 mg tablet 40 mg PO DAILY 09/10/23 09/29/23 bisacodyl 10 mg rectal suppository 10 mg OR DAILY PRN 09/10/23 09/29/23 (Dulcolax (bisacodyl)) clopidogrel 75 mg tablet 75 mg PO DAILY 09/10/23 09/29/23 cyclobenzaprine 5 mg tablet 5 mg PO TID PRN 09/10/23 09/29/23 gabapentin 600 mg tablet 600 mg PO BID 09/10/23 09/29/23 glucagon 1 mg injection kit 1 mg IM PRN 09/10/23 09/29/23 insulin glargine 100 unit/mL 14 unit subcut QPM 09/10/23 09/29/23 subcutaneous solution lisinopril 40 mg tablet 40 mg PO DAILY 09/10/23 09/29/23 magnesium hydroxide 400 mg/5 mL 400 mg PO QID PRN 09/10/23 09/29/23 oral suspension naloxone 4 mg/actuation nasal spray 4 mg intranasal Q2-3M PRN 09/10/23 09/29/23 oxycodone 5 mg tablet,oral ONLY 5 mg PO Q8H 09/10/23 09/10/23 (not feeding tubes) (Oxaydo) pantoprazole 40 mg tablet,delayed 40 mg PO DAILY 09/10/23 09/29/23 release polyethylene glycol 3350 17 gram 17 g PO ONCE 09/10/23 09/29/23 oral powder packet (HealthyLax) potassium chloride 20 mEq 40 meq PO DAILY 09/10/23 09/29/23 tablet,extended release(part/cryst) (Klor-Con M) sodium phosphates 19 gram-7 118 ml OR DAILY PRN 09/10/23 09/29/23 gram/118 mL enema (Fleet Enema) vancomycin 50 mg/mL oral solution 125 mg PO DIRECTED 09/10/23 09/10/23 (Firvanq) tamsulosin 0.4 mg capsule 0.4 mg PO DAILY #30 caps 09/15/23 09/29/23 Saccharomyces boulardii 250 mg 250 mg PO BID 09/29/23 09/29/23 capsule acetaminophen 325 mg capsule 650 mg PO Q4H PRN 09/29/23 09/29/23 amlodipine 5 mg tablet 5 mg PO DAILY 09/29/23 09/29/23 cefuroxime axetil 500 mg tablet 500 mg PO BID #20 tabs 09/29/23 mupirocin 2 % topical ointment 1 applic topical BID #15 grams 09/29/23 nystatin 100,000 unit/gram topical 1 applic topical QID #30 grams 09/29/23 cream oxycodone 10 mg tablet,crush 10 mg PO BID 09/29/23 09/29/23 resistant,extended release 12 hr oxycodone 5 mg tablet 5 mg PO Q6H PRN 09/29/23 09/29/23 Previous Rx's Medication Instructions Recorded tamsulosin 0.4 mg capsule 0.4 mg PO DAILY #30 caps 09/15/23 cefuroxime axetil 500 mg tablet 500 mg PO BID #20 tabs 09/29/23 mupirocin 2 % topical ointment 1 applic topical BID #15 grams 09/29/23 nystatin 100,000 unit/gram topical 1 applic topical QID #30 grams 09/29/23 cream Allergies Allergy/AdvReac Type Severity Reaction Status Date / Time NKDA Allergy Uncoded 09/29/23 17:35 General Stated Complaint: Male Reproductive Problem FOREIGN: 3 PFSH All Active Problems (Updated 09/29/23 @ 20:31 by TARA Solis) Acute urinary retention (Acute) Ulcer of penis (Acute) Urinary retention (Acute) Gross hematuria (Acute) Below-knee amputation of right lower extremity (Acute) Discharge planning issues (Acute) Severe sepsis (Acute) Sepsis (Acute) Urinary tract infection (Acute) Acute hyperkalemia (Acute) Acute metabolic encephalopathy (Acute) Acute renal insufficiency (Acute) CAD (coronary artery disease) (Chronic) Insulin dependent type 2 diabetes mellitus (Acute) Social History Smoking/Tobacco Use Status: Never Smoking risk assessment performed?: Yes Alcohol Intake: former Drug use: Never Substance use type: does not use Housing: assisted living facility Do you feel safe at home: Yes Do you feel safe in your relationship?: Yes Additional Social history: resident at [facility] Course Vital Signs Vital signs: Vital Signs Temperature 36.6 C 09/29/23 17:23 Pulse 85 09/29/23 17:23 Respiratory Rate 12 09/29/23 17:23 Blood Pressure 110/46 L 09/29/23 17:23 Pulse Oximetry 98 09/29/23 17:23 Temperature 36.6 C 09/29/23 17:23 Temperature Source Skin 09/29/23 17:23 Pulse 85 09/29/23 17:23 Respiratory Rate 12 09/29/23 17:23 Respiratory Effort Normal, Non-Labored 09/29/23 17:29 Blood Pressure 110/46 L 09/29/23 17:23 Blood Pressure Position Sitting 09/29/23 17:23 Pulse Oximetry 98 09/29/23 17:23 Oxygen Delivery Method Room Air 09/29/23 17:23 Oxygen Flow Rate 0 09/29/23 17:23
--- NOTE | 2023-09-29 18:00 | DI.RAD_ITS ---
Exam(s) XR HIP RT COMPLETE AP PELVIS EXAM: XR HIP RT COMPLETE AP PELVIS CLINICAL HISTORY: pain post fall. TECHNIQUE: 2D digital imaging was performed of the right hip. Two images were obtained. AP pelvis a nd lateral right hip views were obtained. COMPARISON: No exams were available for comparison FINDINGS: There is patient motion artifact. BONES: No acute fracture is present. No bony destructive lesion is seen. JOINTS: No dislocation present. There are degenerative changes seen in the lumbar spine and hips bila terally. SOFT TISSUE: Extensive vascular calcification is present. IMPRESSION: 1. Patient motion artifact. 2. No acute fracture or dislocation. DATA REPOSITORY: RADIATION DOSE DELIVERED:
--- NOTE | 2023-09-29 20:20 | NUR.NOTE ---
Referral faxed to [facility]rology to f/u thierno for necrotic tissue on head of penis.Nursing Note:
[2023-09-29] MEDS: Mupirocin 2% Oint. 22 GM TUBE (20:54)
[2023-09-29] MEDS: Cefuroxime 500 MG TAB PO (20:54)
[2023-09-29 20:55] VITALS: BP 110/46; PULSE 85; RESP 12; TEMP 36.6; O2SAT 98
== END 2023-09-29 21:00 | disposition home or self-care (01) ==
PROVIDERS: Emergency Provider Physician Assistant; PCP Nurse Practitioner Family
DX: R33.8 Other retention of urine (principal); N48.5 Ulcer of penis
CPT/HCPCS: 82962; 99283; 73502; 81003